=== PATIENT | female | born 1985 | race Caucasian/White ===

== ENCOUNTER 2019-08-25 18:54 | Emergency (ER) | payer BC ==
--- NOTE | 2019-08-25 20:33 | EDM.PDOC ---
ED HPI GENERAL MEDICAL PROBLEM - General Chief Complaint: Abdominal Pain Stated Complaint: abdominal pain Time Seen by Provider: 08/25/19 19:00 Source of Information: Reports: Patient History Limitations: Reports: No Limitations - History of Present Illness INITIAL COMMENTS - FREE TEXT/NARRATIVE: Patient is a 33-year-old who is noted to have abdominal pain for the past 4 days pain is located on the left lower quadrant and epigastric area Onset: Gradual Duration: Day(s):, Constant, Getting Worse Location: Reports: Abdomen, Pelvis Quality: Reports: Throbbing Severity: Moderate Improves with: Reports: None Worsens with: Reports: None abdomen Pain Score (Numeric/FACES): 8 - Related Data Allergies Allergy/AdvReac Type Severity Reaction Status Date / Time No Known Allergies Allergy Verified 08/25/19 18:59 Home Meds: Home Meds . 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 (See Below) Other EXPORT SPECIALIST History: fallopian tubes removed - Past Surgical History Musculoskeletal Surgical History: Reports: Other (See Below) Other Musculoskeletal Surgeries/Procedures:: spinal fusion to L4-L5 for herniated disc Social & Family History - Tobacco Use Smoking Status *Q: Former Smoker Years of Tobacco use: 17 Packs/Tins Daily: 1.5 Used Tobacco, but Quit: Yes Month/Year Tobacco Last Used: 2017 - Caffeine Use Caffeine Use: Reports: Coffee - Recreational Drug Use Recreational Drug Use: No ED ROS GENERAL - Review of Systems Review Of Systems: See Below Constitutional: Reports: No Symptoms HEENT: Reports: No Symptoms Respiratory: Reports: No Symptoms Cardiovascular: Reports: No Symptoms Endocrine: Reports: No Symptoms GI/Abdominal: Reports: No Symptoms : Reports: Pain Musculoskeletal: Reports: No Symptoms Skin: Reports: No Symptoms ED EXAM, RENAL/ - Physical Exam Exam: See Below Exam Limited By: No Limitations General Appearance: Alert, WD/WN, No Apparent Distress Ears: Normal External Exam, Normal Canal, Hearing Grossly Normal, Normal TMs Nose: Normal Inspection, Normal Mucosa, No Blood Throat/Mouth: Normal Inspection, Normal Lips, Normal Teeth, Normal Gums, Normal Oropharynx, Normal Voice, No Airway Compromise Head: Atraumatic, Normocephalic Neck: Normal Inspection, Supple, Non-Tender, Full Range of Motion Respiratory/Chest: No Respiratory Distress, Lungs Clear, Normal Breath Sounds, No Accessory Muscle Use, Chest Non-Tender Cardiovascular: Normal Peripheral Pulses, Regular Rate, Rhythm, No Edema, No Gallop, No JVD, No Murmur, No Rub GI/Abdominal: Normal Bowel Sounds, Soft, Non-Tender, No Organomegaly, No Distention, No Abnormal Bruit, No Mass (Female) Exam: Adnexal Tenderness (Left) Back Exam: Normal Inspection, Full Range of Motion, NT Extremities: Normal Inspection, Normal Range of Motion, Non-Tender, Normal Capillary Refill, No Pedal Edema Neurological: Alert, Oriented, CN II-XII Intact, Normal Cognition, Normal Gait, Normal Reflexes, No Motor/Sensory Deficits Psychiatric: Normal Affect, Normal Mood Skin Exam: Warm, Dry, Intact, Normal Color, No Rash Course - Vital Signs Last Recorded V/S: Last Vital Signs Temp 98.3 F 08/25/19 18:55 Pulse 80 08/25/19 18:55 Resp 16 08/25/19 18:55 BP 166/93 H 08/25/19 18:55 Pulse Ox 100 08/25/19 18:55 - Orders/Labs/Meds Labs: Laboratory Tests 08/25/19 08/25/19 Range/Units 19:29 20:00 WBC 9.8 (4.0-10.2) K/uL RBC 4.23 (3.77-5.09) M/uL Hgb 13.4 (11.7-15.5) g/dL Hct 39.2 (34.0-46.0) % MCV 92.7 (84.0-98.0) fL MCH 31.7 (28.2-33.3) pg MCHC 34.2 (31.7-36.0) g/dL RDW 11.7 (11.2-14.1) % Plt Count 316 (150-350) K/uL Neut % (Auto) 65.7 (45.0-80.0) % Lymph % (Auto) 27.4 (10.0-50.0) % Valley % (Auto) 5.5 (2.0-14.0) % Eos % (Auto) 1.1 (0.0-5.0) % Baso % (Auto) 0.3 (0.0-2.0) % Neut # (Auto) 6.42 (1.40-7.00) K/uL Lymph # (Auto) 2.68 (0.50-3.50) K/uL Valley # (Auto) 0.54 (0.00-1.00) K/uL Eos # (Auto) 0.11 (0.00-0.50) K/uL Baso # (Auto) 0.03 (0.00-0.20) K/uL Specimen Type Urinvoid Urine Color Yellow Urine Appearance Slightly cloudy Urine pH 7.0 (5.0-9.0) Ur Specific Somers 1.015 (1.005-1.030) Urine Protein Negative (NEGATIVE) mg/dL Urine Glucose (UA) Negative (NEGATIVE) mg/dL Urine Ketones Negative (NEGATIVE) mg/dL Urine Occult Blood Trace-intact H (NEGATIVE) Urine Nitrite Positive H (NEGATIVE) Urine Bilirubin Negative (NEGATIVE) Urine Urobilinogen 0.2 (0.2-1.0) E.U./dL Ur Leukocyte Esterase Small H (NEGATIVE) Urine RBC 0-5 /HPF Urine WBC 5-10 H /HPF Ur Epithelial Cells Few /LPF Urine Bacteria Many H (NONE TO FEW) /HPF Departure - Departure Time of Disposition: 20:34 Disposition: Home, Self-Care 01 Condition: Fair Clinical Impression: UTI (urinary tract infection), Pain of ovary - Discharge Information *PRESCRIPTION DRUG MONITORING PROGRAM REVIEWED*: No *COPY OF PRESCRIPTION DRUG MONITORING REPORT IN PATIENT CHARLES: No Referrals: PCP,None [Primary Care Provider] - Care Plan Goals: Patient will be sent home on Pyridium and Septra DS we'll schedule her for ultrasound in the morning to see how her ovaries are follow-up with primary if 2 -3 days
== END 2019-08-25 20:50 | disposition home or self-care (01) ==
LOC: LL.ED 18:54 → SUPCPDRO 18:54 → LL.ED 20:50
DX: N39.0 Urinary tract infection, site not specified (principal); N94.89 Other specified conditions associated with female genital organs and menstrual cycle; Z87.891 Personal history of nicotine dependence
CPT/HCPCS: 36415; 81001; 85025; 87086; 87088; 87186; 99284

== ENCOUNTER 2019-12-20 18:14 | Emergency (ER) | payer BC ==
[2019-12-20] MEDS ORDERED: Magnesium Oxide 400 MG Tab PO ONE (19:28)
--- NOTE | 2019-12-20 19:28 | EDM.PDOC ---
ED HPI GENERAL MEDICAL PROBLEM - General Chief Complaint: General Stated Complaint: hypertension Time Seen by Provider: 12/20/19 18:54 Source of Information: Reports: Patient History Limitations: Reports: No Limitations - History of Present Illness INITIAL COMMENTS - FREE TEXT/NARRATIVE: Patient referred to ER by [facility] after patient called line to ask about persistently high blood pressures. Recently discharged from stay at [facility]. Is taking Effexor and Gabapentin. [facility] also started her on Clonidine 0.1mg Q4 PRN elevated BP. Patient has been following her blood pressures at home and they have been climbing yesterday and today gradually. Admits to feeling anxiety "all the time" and has been getting increasingly anxious about the blood pressure readings. Did have relatively normal BPs several days ago. Now getting readings around 140s/100. Denies headache/visual changes/neuro changes. Feels tight central chest but that happens with the anxiety. No recent illnesses/fevers/chills/trauma. Denies suicidal/homicidal thoughts. No new musculoskeletal pain. Denies SOB/ cough/wheeze/palpitations. Denies nausea/emesis/bowel changes or UTI complaints. Eating and drinking well. 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: fallopian tubes removed Psychiatric History: Reports: Anxiety, Depression, Psych Hospitalization(s) Endocrine/Metabolic History: Reports: Obesity/BMI 30+ - Past Surgical History Musculoskeletal Surgical History: Reports: Other (See Below) Other Musculoskeletal Surgeries/Procedures:: spinal fusion to L4-L5 for herniated disc Social & Family History - Tobacco Use Smoking Status *Q: Former Smoker Used Tobacco, but Quit: Yes Month/Year Tobacco Last Used: spring 2017 - Caffeine Use Caffeine Use: Reports: Coffee - Alcohol Use Alcohol Use History: Yes Alcohol Use Frequency: Socially - Recreational Drug Use Recreational Drug Use: No Drug Use in Last 12 Months: No ED ROS GENERAL - Review of Systems Review Of Systems: Comprehensive ROS is negative, except as noted in HPI. ED EXAM, GENERAL - Physical Exam Exam: See Below Exam Limited By: No Limitations General Appearance: Alert, Anxious, Obese Eye Exam: Bilateral Eye: EOMI, PERRL Ears: Hearing Grossly Normal Nose: No: Nasal Deformity, Nasal Swelling, Nasal Drainage Throat/Mouth: Normal Lips, Normal Voice, No Airway Compromise Head: Atraumatic, Normocephalic Neck: Supple, Full Range of Motion Respiratory/Chest: No Respiratory Distress, Lungs Clear, Normal Breath Sounds, No Accessory Muscle Use, Chest Non-Tender Cardiovascular: Regular Rate, Rhythm (rate 100), No Murmur GI/Abdominal: Soft, Non-Tender (Female) Exam: Deferred Rectal (Female) Exam: Deferred Back Exam: No: Muscle Spasm Extremities: Normal Range of Motion, Normal Capillary Refill Neurological: Alert, Oriented, CN II-XII Intact, Normal Cognition, Normal Gait, No Motor/Sensory Deficits Psychiatric: Anxious Skin Exam: Warm, Dry, Intact, Normal Color Course - Vital Signs Last Recorded V/S: Last Vital Signs Temp 36.1 C 12/20/19 18:18 Pulse 97 12/20/19 19:20 Resp 16 12/20/19 18:18 BP 137/94 H 12/20/19 19:20 Pulse Ox 99 12/20/19 18:56 - Orders/Labs/Meds Meds: Medications Discontinued Medications Generic Name Dose Route Start Last Admin Trade Name Rosales PRN Reason Stop Dose Admin Magnesium Oxide 800 mg 12/20/19 19:28 12/20/19 19:34 Magnesium Oxide PO 12/20/19 19:29 800 mg ONETIME ONE Administration - Re-Assessments/Exams Free Text/Narrative Re-Assessment/Exam: Patient's bps reviewed with her. She has been trying to do daily yoga and mediation for her anxiety since coming home. Also trying box breathing. Admits that the BP issue is stressing her out more as time goes on. She has not had any obvious BP related complaints/changes and even though BPs have been elevated they are not at all in an extreme range. Patient reassured. Long visit with her reviewing strategies for targeting and reducing anxiety. Her effort to do the yoga and meditation was applauded and encouraged. Dietary changes to a whole food diet recommended. She is to avoid processed food, sugar , baked goods. Also recommended to start Vit d and Mg. She can get her levels checked this week when she follows up with her primary provider. Patient became visibly much more relaxed as time went on and stated that she felt encouraged. Will have her try to schedule the clonidine and take 0.2mg BID for the next few days until she follows up at her clinic. Precautions reviewed, including symptoms suggestive of excessively high BP. She is to return to the ER if significantly elevated readings are noted, particularly if any vision or neuro changes/PERDUE develop. Patient agreeable with plan. She is to take two tabs clonidine 0.1mg once she gets home. Departure - Departure Time of Disposition: 19:54 Disposition: Home, Self-Care 01 Condition: Good Clinical Impression: Anxiety and depression Hypertension Qualifiers: Hypertension type: essential hypertension Qualified Code(s): I10 - Essential ( primary) hypertension - Discharge Information *PRESCRIPTION DRUG MONITORING PROGRAM REVIEWED*: Not Applicable *COPY OF PRESCRIPTION DRUG MONITORING REPORT IN PATIENT CHARLES: Not Applicable Referrals: Tonja Gibson PA-C [Primary Care Provider] - Forms: ED Department Discharge Additional Instructions: Take two 0.1mg doses of Clonidine every 12 hours scheduled. No "as needed" doses and continue to check your blood pressure and record it 3 times a day. Follow up with your primary provider as scheduled on Saturday. Continue to perform your yoga/meditation/box breathing DAILY. Dietary changes as discussed. Ask your provider to check your Magnesium level when you have your appointment with her Saturday. If you have sudden worsening problems/higher BPs with vision changes or headache or neuro changes then follow up with ER. Sepsis Event Note - Evaluation Sepsis Screening Result: No Definite Risk - Focused Exam Vital Signs: Vital Signs Temp Pulse Resp BP Pulse Ox 12/20/19 19:20 97 137/94 H 12/20/19 18:45 89 153/91 H 99 12/20/19 18:29 95 143/98 H 99 12/20/19 18:18 36.1 C 100 16 143/98 H 100 Date Exam was Performed: 12/20/19 Time Exam was Performed: 19:36
== END 2019-12-20 19:39 | disposition home or self-care (01) ==
LOC: LL.ED 18:14
DX: I10 Essential (primary) hypertension (principal); F41.9 Anxiety disorder, unspecified; F32.9 Major depressive disorder, single episode, unspecified; E66.9 Obesity, unspecified; Z87.891 Personal history of nicotine dependence
CPT/HCPCS: 99283; A9270

== ENCOUNTER 2020-03-11 02:05 | Inpatient (IN) | payer BC ==
[2020-03-11] MEDS ORDERED: Sodium Chloride 0.9% 10 ML Syringe FLUSH PRN (02:13)
[2020-03-11 02:33] LABS: CHLORIDE,CL 100 mmol/L (98-107); SODIUM,NA 139 mmol/L (136-145)
--- NOTE | 2020-03-11 02:34 | EDM.PDOC ---
ED HPI GENERAL MEDICAL PROBLEM - General Chief Complaint: General Stated Complaint: found on floor of bathroom, sweaty, heart racing Time Seen by Provider: 03/11/20 02:12 Source of Information: Reports: Patient History Limitations: Reports: No Limitations - History of Present Illness INITIAL COMMENTS - FREE TEXT/NARRATIVE: Patient woken up by one of her children. Reports feeling heart beating fast/ felt sweaty and the need to use toilet. Had what she described as a very large diarrhea bowel movement. Since then she has had on/off crampy abdominal pain across entire abdomen. Was nauseated after having the BM but that currently has improved. Reports three day headache. Recently had HCTZ dose double and started on Prazosin. She has been on Prazosin before and had the side effect of dyspnea, thus it was discontinued. She said they restarted it again because "the benefits outweighed the negative" . Denies HEENT changes other than PERDUE. No URI complaints. Denies SOB/cough/phlegm/chest pain. No further sensation of fast heart beat/palpitations/edema/syncope. GI:+ for nausea/diarrhea/abdominal cramping as noted above. negative for UTI/hematuria. No flank pain. Has history of chronic back/neck pain. 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: fallopian tubes removed Psychiatric History: Reports: Anxiety, Depression, Psych Hospitalization(s) Endocrine/Metabolic History: Reports: Obesity/BMI 30+ - Past Surgical History Musculoskeletal Surgical History: Reports: Other (See Below) Other Musculoskeletal Surgeries/Procedures:: spinal fusion to L4-L5 for herniated disc Social & Family History - Tobacco Use Smoking Status *Q: Never Smoker Second Hand Smoke Exposure: No - Caffeine Use Caffeine Use: Reports: Coffee - Alcohol Use Alcohol Use History: No - Recreational Drug Use Recreational Drug Use: No ED ROS GENERAL - Review of Systems Review Of Systems: Comprehensive ROS is negative, except as noted in HPI. ED EXAM, GENERAL - Physical Exam Exam: See Below Exam Limited By: No Limitations General Appearance: Alert, Anxious, Obese Eye Exam: Bilateral Eye: EOMI, PERRL Ears: Normal External Exam, Hearing Grossly Normal Nose: No: Nasal Deformity, Nasal Swelling, Nasal Drainage Throat/Mouth: Normal Lips, Normal Voice, No Airway Compromise Head: Atraumatic, Normocephalic Neck: Normal Inspection, Supple, Non-Tender, Full Range of Motion Respiratory/Chest: No Respiratory Distress, Lungs Clear, Normal Breath Sounds, No Accessory Muscle Use, Chest Non-Tender Cardiovascular: Regular Rate, Rhythm, No Murmur GI/Abdominal: Soft, No Distention, Tender (mild discomfort left mid abdomen with palpation), Other (active bowel sounds throughout). No: Guarding, Rigid, Rebound (Female) Exam: Deferred Rectal (Female) Exam: Deferred Back Exam: No: CVA Tenderness (L), CVA Tenderness (R), Muscle Spasm, Paraspinal Tenderness, Vertebral Tenderness Extremities: Normal Inspection, Non-Tender, Normal Capillary Refill Neurological: Alert, Oriented, Normal Cognition, Other (equal tone/strength bilaterally) Psychiatric: Anxious Skin Exam: Warm, Dry, Intact, Normal Color Course - Vital Signs Last Recorded V/S: Last Vital Signs Temp 36.4 C 03/11/20 02:08 Pulse 87 03/11/20 02:08 Resp 21 H 03/11/20 02:08 BP 129/74 03/11/20 02:08 Pulse Ox 100 03/11/20 02:08 - Orders/Labs/Meds Orders: Active Orders 24 hr Category Date Time Status Abdomen 2V AP Flat Upright [CR] Stat Exams 03/11/20 02:13 Ordered CBC WITH AUTO DIFF [HEME] Stat Lab 03/11/20 02:13 Ordered COMPREHENSIVE METABOLIC PN,CMP [CHEM] Stat Lab 03/11/20 02:13 Ordered CORONAVIRUS COVID-19 PCR PHL Routine Lab 03/11/20 02:20 Ordered LACTIC ACID [CHEM] Stat Lab 03/11/20 02:13 Ordered MG [MAGNESIUM] [CHEM] Stat Lab 03/11/20 02:13 Ordered UA W/MICROSCOPIC [URIN] Stat Lab 03/11/20 02:13 Ordered Sodium Chloride 0.9% [Saline Flush] Med 03/11/20 02:13 Ordered 10 ml FLUSH ASDIRECTED PRN Saline Lock Insert [OM.PC] Routine Oth 03/11/20 02:13 Ordered Medication Orders Sodium Chloride (Saline Flush) 10 ml FLUSH ASDIRECTED PRN PRN Reason: Keep Vein Open Meds: Medications Generic Name Dose Route Start Last Admin Trade Name Freq PRN Reason Stop Dose Admin Sodium Chloride 10 ml 03/11/20 02:13 Saline Flush FLUSH ASDIRECTED PRN Keep Vein Open - Radiology Interpretation Free Text/Narrative:: Abdominal films show no evidence of acute obstruction - Re-Assessments/Exams Free Text/Narrative Re-Assessment/Exam: 03/11/20 02:36 Baseline labs and xray requested. Patient has had tubal ligation/denies chance . Covid testing added given her three day history of headache/heavy sensation in neck along with the GI symptoms. 03/11/20 02:40 WBC mildly elevated. Elevated lactic acid. Mag and K low. Suspect viral GI illness. Admit observation for IV fluids/K and Mag replacement. Departure - Departure Time of Disposition: 02:41 Disposition: Refer to Observation Condition: Good Clinical Impression: Elevated lactic acid level, Hypomagnesemia, Hypokalemia Diarrhea Qualifiers: Diarrhea type: presumed infectious Qualified Code(s): R19.7 - Diarrhea, unspecified - Discharge Information *PRESCRIPTION DRUG MONITORING PROGRAM REVIEWED*: Not Applicable *COPY OF PRESCRIPTION DRUG MONITORING REPORT IN PATIENT CHARLES: Not Applicable Sepsis Event Note - Evaluation Sepsis Screening Result: No Definite Risk - Focused Exam Vital Signs: Vital Signs Temp Pulse Resp BP Pulse Ox 03/11/20 02:08 36.4 C 87 21 H 129/74 100 Date Exam was Performed: 03/11/20 Time Exam was Performed: 02:28 - Problem List & Annotations (1) Diarrhea SNOMED Code(s): 38923441 Code(s): R19.7 - DIARRHEA, UNSPECIFIED Status: Acute Priority: High Current Visit: Yes Onset Date: ~03/11/20 Annotation/Comment:: Single very large loose stool followed by abdominal cramping. Suspect viral etiology. Observe for changes. Qualifiers: Diarrhea type: presumed infectious Qualified Code(s): R19.7 - Diarrhea, unspecified (2) Elevated lactic acid level SNOMED Code(s): 3443943 Code(s): R79.89 - OTHER SPECIFIED ABNORMAL FINDINGS OF BLOOD CHEMISTRY Status: Acute Priority: Medium Current Visit: Yes Annotation/Comment:: Observe trend. No evidence of sepsis at this time. Repeat in 12 hours. (3) Hypokalemia SNOMED Code(s): 27862595 Code(s): E87.6 - HYPOKALEMIA Status: Acute Priority: Medium Current Visit: Yes Annotation/Comment:: Initiate potassium replacement and recheck in 12 hours. (4) Hypomagnesemia SNOMED Code(s): 125112806 Code(s): E83.42 - HYPOMAGNESEMIA Status: Chronic Priority: Medium Current Visit: Yes Annotation/Comment:: Initiate Mag replacement. Patient should be started on oral supplementation at time of discharge. (5) Hypertension SNOMED Code(s): 80521832 Code(s): I10 - ESSENTIAL (PRIMARY) HYPERTENSION Status: Chronic Priority : Low Current Visit: No Annotation/Comment:: Observe trends. Recently had HCTZ increased and Prazosin initiated. Qualifiers: Hypertension type: essential hypertension (6) Polycystic ovarian disease SNOMED Code(s): 283515049 Code(s): E28.2 - POLYCYSTIC OVARIAN SYNDROME Status: Chronic Priority: Low Current Visit: No Annotation/Comment:: stable per history (7) Anxiety and depression SNOMED Code(s): 930690753 Code(s): F41.9 - ANXIETY DISORDER, UNSPECIFIED; F32.9 - MAJOR DEPRESSIVE DISORDER, SINGLE EPISODE, UNSPECIFIED Status: Chronic Priority: Low Current Visit: No Annotation/Comment:: stable per history - My Orders Last 24 Hours: My Active Orders 03/11/20 02:13 Abdomen 2V AP Flat Upright [CR] Stat CBC WITH AUTO DIFF [HEME] Stat COMPREHENSIVE METABOLIC PN,CMP [CHEM] Stat LACTIC ACID [CHEM] Stat MG [MAGNESIUM] [CHEM] Stat UA W/MICROSCOPIC [URIN] Stat Sodium Chloride 0.9% [Saline Flush] 10 ml FLUSH ASDIRECTED PRN Saline Lock Insert [OM.PC] Routine 03/11/20 02:20 CORONAVIRUS COVID-19 PCR [facility] Routine - Assessment/Plan Admission H&P: Please use this note as an admission H&P Last 24 Hours: My Active Orders 03/11/20 02:13 Abdomen 2V AP Flat Upright [CR] Stat CBC WITH AUTO DIFF [HEME] Stat COMPREHENSIVE METABOLIC PN,CMP [CHEM] Stat LACTIC ACID [CHEM] Stat MG [MAGNESIUM] [CHEM] Stat UA W/MICROSCOPIC [URIN] Stat Sodium Chloride 0.9% [Saline Flush] 10 ml FLUSH ASDIRECTED PRN Saline Lock Insert [OM.PC] Routine 03/11/20 02:20 CORONAVIRUS COVID-19 PCR [facility] Routine Assessment:: as above. Stable and suitable for observation. Plan: As above. Anticipate 1-2 day stay depending on how well she responds to Mag/K replacement and clinical course of abdominal pain/symptoms. to assume care later this morning.
[2020-03-11] MEDS ORDERED: Ondansetron 4 MG/2 ML SDV IVPUSH PRN (03:03)
[2020-03-11] MEDS ORDERED: Ondansetron 4 MG/2 ML SDV IVPUSH ONE (03:08)
[2020-03-11] MEDS ORDERED: Potassium Chloride 20 MEQ Tab.ER PO ONE ×4 (03:09→12:00)
[2020-03-11] MEDS ORDERED: Sodium Chloride 0.9% 1,000 ML IV ONE (03:10)
[2020-03-11] MEDS ORDERED: Ketorolac 30 MG/ML SDV IVPUSH PRN ×2 (03:14→16:00)
[2020-03-11] MEDS: Acetaminophen 500 MG Tab PO PRN ×2 (03:44→12:50)
[2020-03-11] MEDS: Sodium Chloride 0.9% 1,000 ML IV SCH ×4 (05:52→21:54)
[2020-03-11 15:20] LABS: CHLORIDE,CL 108 mmol/L (98-107); SODIUM,NA 141 mmol/L (136-145)
[2020-03-11] MEDS ORDERED: Temazepam 15 MG Cap PO PRN (15:34)
[2020-03-11] MEDS ORDERED: Venlafaxine 37.5 MG Cap.ER PO ONE (15:58)
[2020-03-11] MEDS ORDERED: Venlafaxine 75 MG Cap.ER PO ONE (16:15)
[2020-03-11] MEDS: Nitrofurantoin Monohydrate/Macrocrystalline 100 MG Cap PO SCH (17:07)
[2020-03-11] MEDS: Gabapentin 100 MG Cap PO SCH (20:28)
[2020-03-12] MEDS ORDERED: VENLAFAXINE HCL PO SCH (08:00)
[2020-03-12] MEDS ORDERED: Venlafaxine 37.5 MG Cap.ER PO SCH (08:00)
[2020-03-12] MEDS ORDERED: Gabapentin 100 MG Cap PO SCH (08:00)
[2020-03-12] MEDS: Nitrofurantoin Monohydrate/Macrocrystalline 100 MG Cap PO SCH ×2 (08:16→17:30)
[2020-03-12 08:32] LABS: CHLORIDE,CL 109 mmol/L (98-107); SODIUM,NA 142 mmol/L (136-145)
[2020-03-12] MEDS ORDERED: Iopamidol 755 Mg/ML 100 ML Bottle IVPUSH ONE (09:06)
[2020-03-12] MEDS ORDERED: Enoxaparin 80 MG/0.8 ML Syringe SUBCUT SCH (09:15)
--- NOTE | 2020-03-12 09:15 | PCM.PN ---
- General Info Date of Service: 03/12/20 Admission Dx/Problem (Free Text): Syncope Functional Status: Reports: Pain Controlled, Tolerating Diet, Ambulating, Urinating. Denies: New Symptoms, Incentive Spirometry Pain Score: 0 - Review of Systems General: Reports: No Symptoms. Denies: Fever, Weakness, Fatigue, Malaise, Appetite (Good) HEENT: Reports: No Symptoms. Denies: Ear Pain, Eye Pain, Glasses, Headaches, Post Nasal Drip, Sinus Congestion, Sore Throat, Rhinitis, Visual Changes Pulmonary: Reports: No Symptoms. Denies: Shortness of Breath, Pleuritic Chest Pain, Cough, Sputum, Hemoptysis, Wheezing Cardiovascular: Reports: No Symptoms. Denies: Chest Pain, Palpitations, Dyspnea on Exertion, Orthopnea, PND, Edema Gastrointestinal: Reports: Constipation. Denies: Abdominal Pain, Decreased Appetite, Diarrhea, Difficulty Swallowing, Flatus, Hematochezia, Melena, Nausea , Vomiting Genitourinary: Reports: No Symptoms. Denies: Dysuria, Frequency, Burning, Pain , Urgency, Incontinence, Hematuria, Retention, Flank Pain Musculoskeletal: Reports: No Symptoms. Denies: Neck Pain, Shoulder Pain, Arm Pain, Back Pain, Leg Pain Skin: Reports: No Symptoms. Denies: Diaphoresis Neurological: Reports: No Symptoms. Denies: Confusion, Numbness, Paresthesia, Tingling, Weakness Psychiatric: Reports: No Symptoms. Denies: Confusion, Depression, Anxiety, Agitation, Cravings, Hallucinations - Patient Data Vitals - Most Recent: Last Vital Signs Temp 36.6 C 03/12/20 08:01 Pulse 81 03/12/20 08:01 Resp 20 03/12/20 08:01 BP 146/92 H 03/12/20 08:01 Pulse Ox 95 03/12/20 08:01 Vital Signs - 24 hr 03/11/20 03/11/20 03/11/20 11:40 17:57 21:54 Temperature [ 36.7 C Oral] Temperature [ 36.4 C 36.7 C Temporal] Pulse, 84 76 74 Peripheral [ Pulse Oximetry] Respiratory 20 20 16 Rate Blood Pressure 139/87 145/97 H 152/100 H [Left Upper Arm ] O2 Sat by Pulse 94 L 95 97 Oximetry 03/12/20 03/12/20 00:00 08:01 Temperature [ 36.6 C Oral] Temperature [ Temporal] Pulse, 81 Peripheral [ Pulse Oximetry] Respiratory 20 Rate Blood Pressure 145/99 H 146/92 H [Left Upper Arm ] O2 Sat by Pulse 95 Oximetry Weight - Most Recent: 96.162 kg I&O - Last 24 Hours: Intake & Output 03/11/20 03/12/20 03/12/20 22:59 06:59 14:59 Intake Total 2882 1238 360 Output Total 500 300 Balance 2882 738 60 Imaging Impressions - Last 24 Hours: dermatology procedural physician shows normal sinus rhythm with heart rate in the 80s with no ectopy or arrhythmia Chest x-ray, PA and lateral, on 03/12/20 shows no evidence of cardiomegaly, pulmonary infiltrates, pneumothorax, or CHF. Possible mild pulmonary obstructive disease Lab Results Last 24 Hours: Laboratory Results - last 24 hr 03/11/20 03/11/20 03/11/20 Range/Units 14:55 14:55 14:55 WBC 7.6 (4.0-10.2) K/uL RBC 3.60 L (3.77-5.09) M/uL Hgb 11.3 L D (11.7-15.5) g/dL Hct 33.7 L (34.0-46.0) % MCV 93.6 D (84.0-98.0) fL MCH 31.4 (28.2-33.3) pg MCHC 33.5 (31.7-36.0) g/dL RDW 13.4 (11.2-14.1) % Plt Count 293 (150-350) K/uL Neut % (Auto) 62.6 (45.0-80.0) % Lymph % (Auto) 27.5 (10.0-50.0) % Tripp % (Auto) 8.3 (2.0-14.0) % Eos % (Auto) 1.2 (0.0-5.0) % Baso % (Auto) 0.4 (0.0-2.0) % Neut # (Auto) 4.77 (1.40-7.00) K/uL Lymph # (Auto) 2.09 (0.50-3.50) K/uL Tripp # (Auto) 0.63 (0.00-1.00) K/uL Eos # (Auto) 0.09 (0.00-0.50) K/uL Baso # (Auto) 0.03 (0.00-0.20) K/uL D-Dimer, Quantitative (0-400) ng/mL Sodium 141 (136-145) mmol/L Potassium 3.7 (3.5-5.1) mmol/L Chloride 108 H (98-107) mmol/L Carbon Dioxide 24.2 (21.0-32.0) mmol/L BUN 13 (7-18) mg/dL Creatinine 0.71 (0.51-1.17) mg/dL Est Cr Clr Drug Dosing 85.84 mL/min Estimated GFR (MDRD) > 60 mL/min Glucose 104 (74-106) mg/dL Lactic Acid 0.9 (0.4-2.0) mmol/L Calcium 7.7 L (8.5-10.1) mg/dL Magnesium (1.8-2.4) mg/dL Total Bilirubin (0.2-1.0) mg/dL AST (15-37) U/L ALT (12-78) U/L Alkaline Phosphatase (46-116) IU/L Creatine Kinase (26-308) U/L Creatine Kinase Index (0.0-2.5) % CK-MB (CK-2) (0.00-3.60) ng/mL Troponin I (0.000-0.056) ng/mL NT-Pro-B Natriuret Pep (0-125) pg/mL Total Protein (6.4-8.2) g/dL Albumin (3.4-5.0) g/dL Vitamin B12 (193-986) pg/mL TSH, Ultra Sensitive (0.358-3.740) mIU/mL 03/12/20 03/12/20 03/12/20 Range/Units 07:35 07:35 07:35 WBC 6.7 (4.0-10.2) K/uL RBC 3.84 (3.77-5.09) M/uL Hgb 11.9 (11.7-15.5) g/dL Hct 36.3 (34.0-46.0) % MCV 94.5 (84.0-98.0) fL MCH 31.0 (28.2-33.3) pg MCHC 32.8 (31.7-36.0) g/dL RDW 13.1 (11.2-14.1) % Plt Count 275 (150-350) K/uL Neut % (Auto) 55.6 (45.0-80.0) % Lymph % (Auto) 33.9 (10.0-50.0) % Tripp % (Auto) 8.6 (2.0-14.0) % Eos % (Auto) 1.6 (0.0-5.0) % Baso % (Auto) 0.3 (0.0-2.0) % Neut # (Auto) 3.73 (1.40-7.00) K/uL Lymph # (Auto) 2.28 (0.50-3.50) K/uL Tripp # (Auto) 0.58 (0.00-1.00) K/uL Eos # (Auto) 0.11 (0.00-0.50) K/uL Baso # (Auto) 0.02 (0.00-0.20) K/uL D-Dimer, Quantitative 686 H (0-400) ng/mL Sodium 142 (136-145) mmol/L Potassium 3.8 (3.5-5.1) mmol/L Chloride 109 H (98-107) mmol/L Carbon Dioxide 25.5 (21.0-32.0) mmol/L BUN 8 (7-18) mg/dL Creatinine 0.66 (0.51-1.17) mg/dL Est Cr Clr Drug Dosing 92.34 mL/min Estimated GFR (MDRD) > 60 mL/min Glucose 91 (74-106) mg/dL Lactic Acid (0.4-2.0) mmol/L Calcium 7.3 L (8.5-10.1) mg/dL Magnesium 2.0 (1.8-2.4) mg/dL Total Bilirubin 0.3 (0.2-1.0) mg/dL AST 24 (15-37) U/L ALT 24 (12-78) U/L Alkaline Phosphatase 59 (46-116) IU/L Creatine Kinase 493 H (26-308) U/L Creatine Kinase Index 0.3 (0.0-2.5) % CK-MB (CK-2) 1.50 (0.00-3.60) ng/mL Troponin I 0.010 (0.000-0.056) ng/mL NT-Pro-B Natriuret Pep 258 H (0-125) pg/mL Total Protein 6.2 L (6.4-8.2) g/dL Albumin 2.9 L (3.4-5.0) g/dL Vitamin B12 297 (193-986) pg/mL TSH, Ultra Sensitive 1.187 (0.358-3.740) mIU/mL 03/12/20 Range/Units 07:35 WBC (4.0-10.2) K/uL RBC (3.77-5.09) M/uL Hgb (11.7-15.5) g/dL Hct (34.0-46.0) % MCV (84.0-98.0) fL MCH (28.2-33.3) pg MCHC (31.7-36.0) g/dL RDW (11.2-14.1) % Plt Count (150-350) K/uL Neut % (Auto) (45.0-80.0) % Lymph % (Auto) (10.0-50.0) % Tripp % (Auto) (2.0-14.0) % Eos % (Auto) (0.0-5.0) % Baso % (Auto) (0.0-2.0) % Neut # (Auto) (1.40-7.00) K/uL Lymph # (Auto) (0.50-3.50) K/uL Tripp # (Auto) (0.00-1.00) K/uL Eos # (Auto) (0.00-0.50) K/uL Baso # (Auto) (0.00-0.20) K/uL D-Dimer, Quantitative (0-400) ng/mL Sodium (136-145) mmol/L Potassium (3.5-5.1) mmol/L Chloride (98-107) mmol/L Carbon Dioxide (21.0-32.0) mmol/L BUN (7-18) mg/dL Creatinine (0.51-1.17) mg/dL Est Cr Clr Drug Dosing mL/min Estimated GFR (MDRD) mL/min Glucose (74-106) mg/dL Lactic Acid 0.7 (0.4-2.0) mmol/L Calcium (8.5-10.1) mg/dL Magnesium (1.8-2.4) mg/dL Total Bilirubin (0.2-1.0) mg/dL AST (15-37) U/L ALT (12-78) U/L Alkaline Phosphatase (46-116) IU/L Creatine Kinase (26-308) U/L Creatine Kinase Index (0.0-2.5) % CK-MB (CK-2) (0.00-3.60) ng/mL Troponin I (0.000-0.056) ng/mL NT-Pro-B Natriuret Pep (0-125) pg/mL Total Protein (6.4-8.2) g/dL Albumin (3.4-5.0) g/dL Vitamin B12 (193-986) pg/mL TSH, Ultra Sensitive (0.358-3.740) mIU/mL Med Orders - Current: Current Medications Acetaminophen (Tylenol Extra Strength) 1,000 mg PO Q6H PRN PRN Reason: Pain Last Admin: 03/11/20 12:50 Dose: 1,000 mg Enoxaparin Sodium (Lovenox) 80 mg SUBCUT Q12H [facility] Gabapentin (Neurontin) 100 mg PO DAILY@14,20 [facility] Last Admin: 03/11/20 20:28 Dose: 100 mg Sodium Chloride (Normal Saline) 1,000 mls @ 80 mls/hr IV ASDIRECTED [facility] Last Admin: 03/11/20 21:54 Dose: 80 mls/hr Iopamidol (Isovue-370 (76%)) 100 ml IVPUSH ONETIME ONE Stop: 03/12/20 09:07 Metoprolol Succinate (Toprol Xl) 25 mg PO DAILY [facility] Nitrofurantoin Macrocrystals (Macrobid) 100 mg PO BID [facility] Last Admin: 03/12/20 08:16 Dose: 100 mg Ondansetron HCl (Zofran) 4 mg IVPUSH Q6H PRN PRN Reason: Nausea/Vomiting Sodium Chloride (Saline Flush) 10 ml FLUSH ASDIRECTED PRN PRN Reason: Keep Vein Open Temazepam (Restoril) 15 mg PO BEDTIME PRN PRN Reason: Insomnia Discontinued Medications Magnesium Sulfate/Dextrose 1 (gm/ Premix) 100 mls @ 100 mls/hr IV ONETIME ONE Stop: 03/11/20 04:05 Last Admin: 03/11/20 03:44 Dose: 100 mls/hr Sodium Chloride (Normal Saline) 1,000 mls @ 500 mls/hr IV .BOLUS ONE Stop: 03/11/20 05:09 Last Admin: 03/11/20 03:44 Dose: 500 mls/hr Magnesium Sulfate/Dextrose 1 (gm/ Premix) 100 mls @ 100 mls/hr IV ONETIME ONE Stop: 03/11/20 09:59 Last Admin: 03/11/20 08:50 Dose: 100 mls/hr Sodium Chloride (Normal Saline) 1,000 mls @ 150 mls/hr IV ASDIRECTED [facility] Last Admin: 03/11/20 12:37 Dose: 150 mls/hr Ketorolac Tromethamine (Toradol) 30 mg IVPUSH Q6H PRN PRN Reason: Pain Stop: 03/16/20 03:14 Last Admin: 03/11/20 03:45 Dose: 30 mg Ketorolac Tromethamine (Toradol) 15 mg IVPUSH Q6H PRN PRN Reason: Pain (severe 7-10) Stop: 03/16/20 16:01 Ondansetron HCl (Zofran) 4 mg IVPUSH ONETIME ONE Stop: 03/11/20 03:09 Last Admin: 03/11/20 03:45 Dose: 4 mg Potassium Chloride (Klor-Con M20) 20 meq PO ONETIME ONE Stop: 03/11/20 03:10 Last Admin: 03/11/20 03:46 Dose: 20 meq Potassium Chloride (Klor-Con M20) 20 meq PO ONETIME ONE Stop: 03/11/20 06:01 Last Admin: 03/11/20 05:55 Dose: 20 meq Potassium Chloride (Klor-Con M20) 20 meq PO ONETIME ONE Stop: 03/11/20 09:01 Last Admin: 03/11/20 08:50 Dose: 20 meq Potassium Chloride (Klor-Con M20) 20 meq PO ONETIME ONE Stop: 03/11/20 12:01 Last Admin: 03/11/20 11:42 Dose: 20 meq Venlafaxine HCl (Effexor Xr) 37.5 mg PO ONETIME ONE Stop: 03/11/20 15:59 Last Admin: 03/11/20 16:30 Dose: 37.5 mg Venlafaxine HCl (Effexor Xr) 150 mg PO ONETIME ONE Stop: 03/11/20 16:16 Last Admin: 03/11/20 16:30 Dose: 150 mg - Exam Quality Assessment: DVT Prophylaxis. No: Supplemental Oxygen, Central Line/PICC , Urine Catheter, Skin Breakdown, Restraints General: Alert, Oriented, Cooperative, No Acute Distress HEENT: Pupils Equal, Pupils Reactive, EOMI, Mucous Membr. Moist/Point [place]. No: Scleral Icterus Neck: Supple, Trachea Midline, No JVD, No Thyromegaly. No: Lymphadenopathy Lungs: Clear to Auscultation, Normal Respiratory Effort. No: Rub Cardiovascular: Regular Rate, Regular Rhythm, No Murmurs. No: Gallops, Rubs GI/Abdominal Exam: Normal Bowel Sounds, Soft, Non-Tender, No Organomegaly, No Distention, No Abnormal Bruit, No Mass, Other (Obese). No: Guarding (Female) Exam: Deferred Back Exam: Normal Inspection, Full Range of Motion. No: CVA Tenderness (L), CVA Tenderness (R), Muscle Spasm Extremities: Normal Inspection, Normal Range of Motion, Non-Tender, No Pedal Edema, Normal Capillary Refill. No: Vanesa's Sign Peripheral Pulses: 2+: Radial (L), Radial (R), Dorsalis Pedis (L), Dorsalis Pedis (R) Skin: Warm, Dry, Intact. No: Ecchymosis Neurological: No New Focal Deficit Psy/Mental Status: Alert, Normal Affect, Normal Mood. No: Agitated, Suicidal Ideation, Hallucinations EKG INTERPRETATION EKG Date: 03/12/20 Time: 08:28 Rhythm: NSR Rate (Beats/Min): 80 [place]: Normal (Versus neutral) P-Wave: Present (Mild Diffuse biphasic P waves with extreme poor R-wave progression in the anterior leads) QRS: Normal (0.07 seconds with mild repolarization changes) ST-T: Other (T-wave inversion in leads 3, V1, V3, and V4 with lead placement verified) QT: Normal AL/PQ Interval: 0.16 seconds Comparison: NA - No Prior EKG EKG Interpretation Comments: Possible anterior wall cardiac ischemia Sepsis Event Note - Evaluation Sepsis Screening Result: No Definite Risk - Focused Exam Vital Signs: Vital Signs Temp Temp Pulse Resp BP Pulse Ox 03/12/20 08:01 36.6 C 81 20 146/92 H 95 03/12/20 00:00 145/99 H 03/11/20 21:54 36.7 C 74 16 152/100 H 97 Date Exam was Performed: 03/12/20 Time Exam was Performed: 09:33 - Problem List & Annotations (1) Syncope SNOMED Code(s): 911282282 Code(s): R55 - SYNCOPE AND COLLAPSE Status: Acute Priority: High Current Visit: Yes Onset Date: 03/12/20 Qualifiers: Syncope type: unspecified Qualified Code(s): R55 - Syncope and collapse Annotation/Comment:: Syncopal episode initially suspected secondary to patient' s diarrhea and possible vasovagal episode., Note, however, d-dimer elevation today with further workup as below. No chest pain or anginal type symptoms despite evidence of some anterior wall cardiac ischemia by today's exam. Mild change in troponin I, which is still normal with additional normal cardiac index. Subcutaneous Lovenox as below. She is not symptomatic at this time. Note that patient's prazosin and hydrochlorothiazide could also be contributing factors. These medications were not reinitiated on admission. Initiate low-dose Toprol XL for now secondary to mildly elevated blood pressures. Orthostatic blood pressures prior to discharge. Diarrhea has since resolved with patient now having some constipation. Repeat EKG and cardiac enzymes in the a.m. with consideration of outpatient Cardiolite stress test depending on her clinical course. (2) D-dimer, elevated SNOMED Code(s): 590002462 Code(s): R79.89 - OTHER SPECIFIED ABNORMAL FINDINGS OF BLOOD CHEMISTRY Status: Acute Priority: High Current Visit: Yes Onset Date: 03/12/20 Annotation/Comment:: Note syncopal episode prior to placement of the patient in observation status. No direct clinical evidence of DVT or PE. CTA of the chest will be conducted later this morning with patient started on the VTE dose of Lovenox with probable venous Doppler studies of the lower extremities to be conducted on an outpatient basis. (3) Hypoalbuminemia SNOMED Code(s): 959065952 Code(s): E88.09 - OTH DISORDERS OF PLASMA-PROTEIN METABOLISM, NEC Status: Acute Priority: Medium Current Visit: Yes Onset Date: 03/12/20 Annotation/Comment:: Observe for now. Note mild obesity (4) Elevated CK SNOMED Code(s): 149232285 Code(s): R74.8 - ABNORMAL LEVELS OF OTHER SERUM ENZYMES Status: Acute Priority: High Current Visit: Yes Onset Date: 03/12/20 Annotation/Comment: : No direct clinical evidence of rhabdomyolysis with normal renal function and patient aggressively hydrated during her observation care. No arthralgias, myalgias, etc. Observe for now. Repeat blood work in the a.m. (5) Fluid overload SNOMED Code(s): 72912496 Code(s): E87.70 - FLUID OVERLOAD, UNSPECIFIED Status: Acute Priority: High Current Visit: Yes Onset Date: 03/12/20 Qualifiers: Hypervolemia type: other Qualified Code(s): E87.79 - Other fluid overload Annotation/Comment:: Mild fluid overload secondary to aggressive IV hydration during her observation care. IV fluids will be discontinued at this time. No clinical evidence of significant CHF either by exam or today's x-ray. Consider echocardiogram depending on her clinical course. (6) Elevated lactic acid level SNOMED Code(s): 2198315 Code(s): R79.89 - OTHER SPECIFIED ABNORMAL FINDINGS OF BLOOD CHEMISTRY Status: Acute Priority: Medium Current Visit: Yes Onset Date: 03/11/20 Annotation/Comment:: No clinical evidence of sepsis. Note current UTI with initiation of Macrobid yesterday. Rapid normalization of patient's lactic acid levels with serial blood evaluations after aggressive IV hydration. (7) Hypokalemia SNOMED Code(s): 64916252 Code(s): E87.6 - HYPOKALEMIA Status: Acute Priority: Medium Current Visit: Yes Onset Date: 03/12/20 Annotation/Comment:: Aggressive oral potassium chloride supplementation with normal potassium level today. Hydrochlorothiazide discontinued as above. Hold on further oral potassium chloride supplementation for now. (8) Hypomagnesemia SNOMED Code(s): 203543102 Code(s): E83.42 - HYPOMAGNESEMIA Status: Acute Priority: Medium Current Visit: Yes Onset Date: 03/11/20 Annotation/Comment:: Aggressive magnesium replacement by means of 2 g of IV magnesium sulfate on 03/11 with a normal magnesium level today. Note discontinuation of hydrochlorothiazide as above. Initiate oral magnesium oxide depending on her clinical course with repeat magnesium level tomorrow. (9) Anxiety and depression SNOMED Code(s): 588462409 Code(s): F41.9 - ANXIETY DISORDER, UNSPECIFIED; F32.9 - MAJOR DEPRESSIVE DISORDER, SINGLE EPISODE, UNSPECIFIED Status: Chronic Priority: Medium Current Visit: Yes Annotation/Comment:: Stable per history during this hospitalization. Continue to observe closely by her regular provider. (10) Hypertension SNOMED Code(s): 85683174 Code(s): I10 - ESSENTIAL (PRIMARY) HYPERTENSION Status: Chronic Priority : Low Current Visit: Yes Qualifiers: Hypertension type: essential hypertension Qualified Code(s): I10 - Essential (primary) hypertension Annotation/Comment:: As above (11) UTI (urinary tract infection) SNOMED Code(s): 28654507 Code(s): N39.0 - URINARY TRACT INFECTION, SITE NOT SPECIFIED Status: Acute Priority: High Current Visit: Yes Onset Date: 03/11/20 Qualifiers: Urinary tract infection type: acute cystitis Hematuria presence: without hematuria Qualified Code(s): N30.00 - Acute cystitis without hematuria Annotation/Comment:: Macrobid initiated as above. Urine culture and sensitivity results are still pending. - Problem List Review Problem List Initiated/Reviewed/Updated: Yes - My Orders Last 24 Hours: My Active Orders 03/11/20 15:30 CULTURE URINE [RM] Routine 03/11/20 15:33 Communication Order [RC] 03/11/20 15:34 Temazepam [Restoril] 15 mg PO BEDTIME PRN 03/11/20 15:41 Sodium Chloride 0.9% [Normal Saline] 1,000 ml IV ASDIRECTED 03/11/20 18:00 Nitrofurantoin Tripp/Macrocryst [Macrobid] 100 mg PO BID 03/11/20 20:00 Gabapentin [Neurontin] 100 mg PO DAILY@03/12/20 05:11 EKG Documentation Completion [RC] ASDIRECTED Chest 2V [CR] Routine FERRITIN [CHEM] Routine IRON/TIBC [CHEM] Routine 03/12/20 09:01 Admission Status [Patient Status] [ADT] Routine Chest PE [Ang Chest] [CT] Stat 03/12/20 09:06 Iopamidol [Isovue-370 (76%)] 100 ml IVPUSH ONETIME ONE 03/12/20 09:15 Enoxaparin [Lovenox] 80 mg SUBCUT Q12H Metoprolol Succinate [Toprol XL] 25 mg PO DAILY 03/12/20 Breakfast Heart Healthy Diet [DIET] 03/12/20 Dinner Nothing per Oral Now Diet [DIET] 03/13/20 05:11 EKG Documentation Completion [RC] ASDIRECTED CBC WITH AUTO DIFF [HEME] Routine CK W CKMB [CHEM] Routine COMPREHENSIVE METABOLIC PN,CMP [CHEM] Routine D-DIMER QUANTITATIVE [COAG] Routine GLYCOSYLATED HEMOGLOBIN,HGBA1C [CHEM] Routine LIPID PANEL [CHEM] Routine PRO B-TYPE NATRIUR PEPT,BNPPRO [CHEM] Routine TROPONIN I [CHEM] Routine EKG 12 Lead [EK] Routine - Assessment Assessment:: As above - Plan Plan:: As above. Various therapeutic options were discussed with the patient, including further workup of her possible anterior wall cardiac ischemia and d- dimer elevation as above. She is in agreement to changing her current hospitalization from observation to inpatient care secondary to the necessity of further workup as above. Extensive precautions were given to the patient, who is in agreement with the treatment plan. The patient will require about 3- 4 days of inpatient/acute care secondary to multiple health problems as above.
[2020-03-12] MEDS: Metoprolol Succinate 25 MG Tab.ER PO SCH (10:21)
[2020-03-12] MEDS: Venlafaxine 37.5 MG Cap.ER PO SCH (10:22)
[2020-03-12] MEDS: Venlafaxine 75 MG Cap.ER PO SCH (10:22)
[2020-03-12] MEDS: Gabapentin 100 MG Cap PO SCH ×2 (13:12→20:28)
[2020-03-12] MEDS ORDERED: Venlafaxine 75 MG Cap.ER PO ONE (15:58)
[2020-03-12] MEDS: Enoxaparin 80 MG/0.8 ML Syringe SUBCUT SCH (20:27)
[2020-03-12] MEDS: Acetaminophen 500 MG Tab PO PRN (20:32)
[2020-03-13 07:58] LABS: HEMOGLOBIN A1C 5.1 % (4.3-5.7)
[2020-03-13] MEDS: Nitrofurantoin Monohydrate/Macrocrystalline 100 MG Cap PO SCH (08:00)
[2020-03-13] MEDS: Metoprolol Succinate 25 MG Tab.ER PO SCH (08:00)
[2020-03-13] MEDS: Venlafaxine 37.5 MG Cap.ER PO SCH (08:00)
[2020-03-13] MEDS: Venlafaxine 75 MG Cap.ER PO SCH (08:00)
[2020-03-13] MEDS: Enoxaparin 80 MG/0.8 ML Syringe SUBCUT SCH (08:01)
[2020-03-13 08:15] LABS: CHLORIDE,CL 105 mmol/L (98-107); SODIUM,NA 140 mmol/L (136-145)
--- NOTE | 2020-03-13 09:24 | PCM.DCSUM1 ---
Discharge Summary - Hospital Course HPI Initial Comments: See emergency room note/admission H&P Brief History: See emergency room note/admission H&P Diagnosis: Stroke: No Modified Mcbee Scale: No Symptoms at All Modified Mcbee Scale Score: 0 - Discharge Data Discharge Date: 03/13/20 Discharge Disposition: Home, Self-Care 01 Condition: Good - Referral to Home Health Primary Care Physician: Gary Rockwell MD - Discharge Diagnosis/Problem(s) (1) Syncope SNOMED Code(s): 118004643 ICD Code: R55 - SYNCOPE AND COLLAPSE Status: Acute Priority: High Current Visit: Yes Onset Date: 03/12/20 Problem Details: No return of syncopal type symptoms with normal orthostatics this morning. Nonspecific brief dizziness and nonspecific headache lasting only for a couple of seconds at time of orthostatic measurements by patient history, however not clinically relevant. Various therapeutic options were discussed with the patient with echocardiogram to be performed on an outpatient basis on 03/15. Provider will decide whether a further Cardiolite stress test is warranted depending on patient's clinical course and echocardiogram findings as above. Syncopal episode initially suspected secondary to patient's diarrhea and possible vasovagal episode. Note, however, d-dimer elevation on 03/12 with negative CTA of the chest for PE and venous Doppler studies of the lower extremities to be conducted on an outpatient basis on 03/14. No chest pain or anginal type symptoms during entire hospitalization despite evidence of some anterior wall cardiac ischemia by serial EKGs, although improved and only borderline EKG results today as below. Negative workup for acute KS. Activity restrictions, fall precautions, etc. were discussed. Mild change in troponin I, which was still normal with additional normal cardiac index. Note initial nonspecific elevation of CPK with normal CK-MB on 03/12 with normal values on 03/13. Subcutaneous Lovenox was initiated on 03/12 as below. She is not symptomatic at this time with no further anticoagulation therapy after discharge. Note that patient's prazosin and hydrochlorothiazide could also be contributing factors to patient's syncope. These medications were not reinitiated on admission. Initiate low-dose Toprol XL for now secondary to mildly elevated blood pressures during this hospitalization, which did improve with this medication. Diarrhea was resolved shortly after admission with patient now having some constipation, although she does not wish to have any further medications for this problem at this time. Qualifiers: Syncope type: unspecified Qualified Code(s): R55 - Syncope and collapse (2) D-dimer, elevated SNOMED Code(s): 908340121 ICD Code: R79.89 - OTHER SPECIFIED ABNORMAL FINDINGS OF BLOOD CHEMISTRY Status: Acute Priority: High Current Visit: Yes Onset Date: 03/12/20 Problem Details: As above. Note syncopal episode prior to placement of the patient in observation status. No direct clinical evidence of DVT or PE. The patient was started on the VTE dose of Lovenox on 03/12. COVID-19 results are still pending. (3) Hypoalbuminemia SNOMED Code(s): 425137613 ICD Code: E88.09 - OTH DISORDERS OF PLASMA-PROTEIN METABOLISM, NEC Status: Acute Priority: Medium Current Visit: Yes Onset Date: 03/12/20 Problem Details: Observe for now. Note mild obesity (4) Elevated CK SNOMED Code(s): 357208594 ICD Code: R74.8 - ABNORMAL LEVELS OF OTHER SERUM ENZYMES Status: Acute Priority: High Current Visit: Yes Onset Date: 03/12/20 Problem Details: As above. No direct clinical evidence of rhabdomyolysis with normal renal function and patient aggressively hydrated during her observation care. No arthralgias, myalgias, etc. (5) Fluid overload SNOMED Code(s): 14312306 ICD Code: E87.70 - FLUID OVERLOAD, UNSPECIFIED Status: Acute Priority: High Current Visit: Yes Onset Date: 03/12/20 Problem Details: Mild fluid overload secondary to aggressive IV hydration during her observation care. IV fluids were discontinued on 03/12. No clinical evidence of significant CHF either by exam or today's x-ray. Echocardiogram on an outpatient basis as above secondary to her syncopal episode. Qualifiers: Hypervolemia type: other Qualified Code(s): E87.79 - Other fluid overload (6) Elevated lactic acid level SNOMED Code(s): 5644909 ICD Code: R79.89 - OTHER SPECIFIED ABNORMAL FINDINGS OF BLOOD CHEMISTRY Status: Acute Priority: Medium Current Visit: Yes Onset Date: 03/11/20 Problem Details: No clinical evidence of sepsis. Note current UTI with initiation of Macrobid yesterday. Rapid normalization of patient's lactic acid levels with serial blood evaluations after aggressive IV hydration. (7) Hypokalemia SNOMED Code(s): 75591551 ICD Code: E87.6 - HYPOKALEMIA Status: Acute Priority: Medium Current Visit: Yes Onset Date: 03/12/20 Problem Details: Aggressive oral potassium chloride supplementation with normal potassium level starting on 03/12. Hydrochlorothiazide discontinued as above with initial aggressive treatment with oral potassium chloride supplementation with no further potassium supplementation for now. Close follow-up by regular provider. (8) Hypomagnesemia SNOMED Code(s): 207441384 ICD Code: E83.42 - HYPOMAGNESEMIA Status: Acute Priority: Medium Current Visit: Yes Onset Date: 03/11/20 Problem Details: Aggressive magnesium replacement by means of 2 g of IV magnesium sulfate on 03/11 with a normal magnesium level today. Note discontinuation of hydrochlorothiazide as above. Initiate oral magnesium oxide by her regular provider depending on her clinical course with repeat magnesium level at her follow-up appointment. (9) Anxiety and depression SNOMED Code(s): 260952518 ICD Code: F41.9 - ANXIETY DISORDER, UNSPECIFIED; F32.9 - MAJOR DEPRESSIVE DISORDER, SINGLE EPISODE, UNSPECIFIED Status: Chronic Priority: Medium Current Visit: Yes Problem Details: Stable per history during this hospitalization. Continue to observe closely by her regular provider. (10) Hypertension SNOMED Code(s): 53711442 ICD Code: I10 - ESSENTIAL (PRIMARY) HYPERTENSION Status: Chronic Priority : Low Current Visit: Yes Problem Details: As above Qualifiers: Hypertension type: essential hypertension Qualified Code(s): I10 - Essential (primary) hypertension (11) UTI (urinary tract infection) SNOMED Code(s): 68460189 ICD Code: N39.0 - URINARY TRACT INFECTION, SITE NOT SPECIFIED Status: Acute Priority: High Current Visit: Yes Onset Date: 03/11/20 Problem Details: Macrobid initiated as above. Urine culture and sensitivity results positive for Escherichia coli infection, which is sensitive to Macrobid. Close follow-up by her regular provider. Qualifiers: Urinary tract infection type: acute cystitis Hematuria presence: without hematuria Qualified Code(s): N30.00 - Acute cystitis without hematuria (12) Dyslipidemia SNOMED Code(s): 836033144 ICD Code: E78.5 - HYPERLIPIDEMIA, UNSPECIFIED Status: Acute Priority: Medium Current Visit: Yes Onset Date: 03/13/20 Problem Details: Mild dyslipidemia by blood work on 03/13 with no change in medical therapy for now. Dietary information provided at discharge with weight loss in moderation. Note normal glycosylated hemoglobin of 5.1% on 03/13. Consider a repeat lipid profile in about 3 months. (13) Hypocalcemia SNOMED Code(s): 0275173 ICD Code: E83.51 - HYPOCALCEMIA Status: Acute Priority: Medium Current Visit: Yes Onset Date: ~03/11/20 Problem Details: Improved. Observe for now. (14) Anemia SNOMED Code(s): 592944106 ICD Code: D64.9 - ANEMIA, UNSPECIFIED Status: Acute Priority: Medium Current Visit: Yes Onset Date: ~03/11/20 Problem Details: Resolved. Possibly secondary to fluid overload. Vitamin B-12 level was normal. TIBC panel and ferritin level are still pending. No evidence of acute GI bleed, etc. Qualifiers: Anemia type: other cause Other causes of anemia: other cause, not classified Qualified Code(s): D64.89 - Other specified anemias - Patient Summary/Data Operative Procedure(s) Performed: None Complications: None Consults: None Labs Pending at D/C: 1. TIBC panel and ferritin level 2. COVID-19 screen Recommended Follow-up Testing/Procedures: As above and as per discharge instructions Planned Operative Procedure(s) after DC: None Hospital Course: The patient was initially placed in observation status secondary to a syncopal episode with long hospitalization required secondary to newly diagnosed d-dimer elevation, fluid overload, etc. as above. Patient was changed to inpatient/ acute care on 03/12 with negative workup for acute KS, etc. as above. She responded extremely well to treatment measures as above with no significant complications during this hospitalization. - Patient Instructions Diet: Heart Healthy Diet Activity: No Strenuous Activities (50% maximum exercise restrictions with fall precautions as discussed) Driving: May Drive Today Showering/Bathing: May Shower Notify Provider of: Fever, Increased Pain, Nausea and/or Vomiting Other/Special Instructions: 1. Followup with your regular provider in 7-10 days as directed for reevaluation and recommended repeat CBC, comprehensive metabolic panel, d-dimer, troponin I, CK, CK-MB, BNP, magnesium level, UA, urine with culture and sensitivity, and EKG. Bring these discharge instructions with you to that visit. 2. Venous Doppler studies of your legs bilaterally will be conducted in this facility at 10:30 a.m. tomorrow morning. 3. This Facility will contact you tomorrow concerning the time of your echocardiogram in this facility on 03/14. 4. Discuss venous Doppler study and echocardiogram results with your regular provider at the above follow-up visit with preliminary report to be obtained from on-call physician prior to leaving this facility on the above dates. 5. Consider scheduling a Cardiolite stress test on an outpatient basis through your regular provider at follow-up depending on your clinical course especially in light of EKG changes during this hospitalization. 6. Weight loss in moderation as discussed with dietary information provided. Consider a repeat fasting lipid profile in 3 months. 7. Obtain quarantine until your COVID-19 results have been obtained as discussed. 8. Immediately after this visit verify that your cellular telephone's voicemail has been activated and is empty. Also verify that your home telephone 's answering machine is operating properly and has space to receive messages. Note that it is sometimes necessary for us to be able to contact you at a later date to discuss your medical care. 9. Please remember that we are ALWAYS here for you and want to answer any questions you may have. Feel free to call the hospital any time and we call you back [facility]. 10. Make sure to complete the entire prescription of your Macrobid, both the supply given at time of discharge and the additional prescription at your pharmacy, for your urinary tract infection. SYMPTOMS TO LOOK OUT FOR: You have been hospitalized for your passing out episode and you should look out for the following symptoms after discharge: 1. Make absolutely certain that you completely understand the reasons you are taking any of your new and/or old medications and/or supplements as discussed with you by the nurse at time of discharge. This includes possible side effects versus interactions between your medications and/ or supplements. Don't be afraid to take extra time to ask any questions or express any concerns, because that is what we are here for. It is very important to us that you understand your care. 2. Notify this facility, telephone number [phone], and/or your regular provider [facility], if you experience any of the following symptoms: a. Sudden chest pressure or pain especially with radiation to the neck, jaws, arms, mid back, etc. especially if these are associated with nausea, cold sweats, dizziness, racing heart, weakness , near fainting, etc. b. Any shortness of breath or decreased exercise tolerance that has changed since your hospital discharge and is not normal for you. c. Any persistent heartburn type symptoms that is not normal for you and is not relieved by any of your discharge medications or supplements. d. Any progressive weight gain especially more than 5 pounds of weight gain prior to your scheduled appointment with your regular provider. e. Any racing heart, dizziness, etc. not associated with the other symptoms as above. f. Any persistent fever equal to or greater than 100.5, which does not respond to recommended doses of Tylenol, ibuprofen, Aleve, or other previously prescribed fever medications - Discharge Plan *PRESCRIPTION DRUG MONITORING PROGRAM REVIEWED*: Not Applicable *COPY OF PRESCRIPTION DRUG MONITORING REPORT IN PATIENT CHARLES: Not Applicable Prescriptions/Med Rec: Metoprolol Succinate [Toprol XL] 25 mg PO DAILY #30 tab.er Nitrofurantoin Patrick/Macrocryst [Nitrofurantoin Patrick-MCR] 100 mg PO BID #10 cap Home Medications: Home Meds Gabapentin [Neurontin] 200 mg PO DAILY 12/20/19 [History] Venlafaxine HCl [Venlafaxine ER] 37.5 mg PO DAILY 12/20/19 [History] Venlafaxine HCl [Venlafaxine ER] 150 mg PO DAILY 12/20/19 [History] Gabapentin [Neurontin] 100 mg PO DAILY@14,20 03/11/20 [History] Acetaminophen [Tylenol Extra Strength] 1,000 mg PO Q6H PRN tablet 03/13/20 [Rx] Metoprolol Succinate [Toprol XL] 25 mg PO DAILY #30 tab.er 03/13/20 [Rx] Nitrofurantoin Patrick/Macrocryst [Nitrofurantoin Patrick-MCR] 100 mg PO BID #10 cap 03/13/20 [Rx] Venlafaxine [Effexor XR] 37.5 mg PO DAILY cap.er 03/13/20 [Rx] Venlafaxine [Effexor XR] 150 mg PO DAILY cap.er 03/13/20 [Rx] Oxygen Therapy Mode: Room Air Patient Handouts: Heart-Healthy Eating Plan, [id number], Acute Urinary Retention, Female, [id number], Syncope, [id number] Forms: ED Department Discharge Referrals: Emelina Rockwell MD [Primary Care Provider] - - Discharge Summary/Plan Comment DC Time >30 min.: Yes (Coordination of care ) Discharge Summary/Plan Comment: As above. Extensive precautions were given to the patient, who is in agreement with the treatment plan. See Patient Instructions for further treatment and plan. - General Info Date of Service: 03/13/20 Admission Dx/Problem (Free Text: Syncope Functional Status: Reports: Pain Controlled, Tolerating Diet, Ambulating, Urinating, New Symptoms. Denies: Incentive Spirometry Numeric/FACES Score: 0 - Review of Systems General: Reports: No Symptoms. Denies: Fever, Weakness, Fatigue, Malaise, Night Sweats, Appetite (Good) HEENT: Reports: Headaches (Very brief as above). Denies: Dysphasia, Ear Pain, Post Nasal Drip, Sinus Congestion, Rhinitis, Visual Changes Pulmonary: Reports: No Symptoms. Denies: Shortness of Breath, Pleuritic Chest Pain, Cough, Sputum, Hemoptysis, Wheezing Cardiovascular: Reports: Lightheadedness (Brief as above?). Denies: Chest Pain , Palpitations, Dyspnea on Exertion, Orthopnea, PND, Edema Gastrointestinal: Reports: Constipation. Denies: Abdominal Pain, Decreased Appetite, Diarrhea, Difficulty Swallowing, Flatus, Hematochezia, Melena, Nausea , Vomiting Genitourinary: Reports: No Symptoms. Denies: Dysuria, Frequency, Burning, Pain , Urgency, Incontinence, Hematuria, Retention, Flank Pain Musculoskeletal: Reports: No Symptoms. Denies: Neck Pain, Shoulder Pain, Arm Pain, Hand Pain, Back Pain, Leg Pain Skin: Reports: No Symptoms. Denies: Diaphoresis, Bruising, Pruritis Neurological: Reports: Dizziness (As above), Headache (As above). Denies: Numbness, Paresthesia, Seizure, Tingling, Difficulty Walking, Weakness Psychiatric: Reports: No Symptoms. Denies: Confusion, Depression, Anxiety, Agitation, Hallucinations, Homicidal Ideation - Patient Data Vitals - Most Recent: Last Vital Signs Temp 36.7 C 03/13/20 06:00 Pulse 748 H 03/13/20 08:00 Resp 20 03/13/20 06:00 BP 141/89 H 05/03/20 08:00 Pulse Ox 94 L 03/13/20 06:00 Orthostatic Blood Pressure [ 137/93 Standing] Orthostatic Blood Pressure [ 141/95 Sitting] Orthostatic Blood Pressure [ 128/77 Supine] Vital Signs - 24 hr 03/12/20 03/12/20 03/12/20 10:21 12:00 17:20 Temperature [ 36.8 C 36.6 C Oral] Pulse, 82 Peripheral Pulse, 75 77 Peripheral [ Pulse Oximetry] Respiratory 20 20 Rate Blood Pressure 146/92 H Blood Pressure 145/94 H 139/89 [Left Upper Arm ] O2 Sat by Pulse 95 97 Oximetry 03/13/20 03/13/20 03/13/20 00:00 06:00 08:00 Temperature [ 36.6 C 36.7 C Oral] Pulse, 748 H Peripheral Pulse, 71 78 Peripheral [ Pulse Oximetry] Respiratory 16 20 Rate Blood Pressure 141/89 H Blood Pressure 147/93 H 141/89 H [Left Upper Arm ] O2 Sat by Pulse 96 94 L Oximetry Orthostatic Blood Pressure [ 137/93 Standing] Orthostatic Blood Pressure [ 141/95 Sitting] Orthostatic Blood Pressure [ 128/77 Supine] Weight - Most Recent: 96.162 kg I&O - Last 24 hours: Intake & Output 03/12/20 03/13/20 03/13/20 22:59 06:59 14:59 Intake Total 300 Output Total 1000 600 600 Balance -700 -600 -600 Imaging Impressions - Last 24 hrs: weather anchor showed normal 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 Possible mild pulmonary obstructive disease CTA of the chest using PE protocol in 03/12/20 was negative for PE with incidental borderline right axillary lymph node Lab Results - Last 24 hrs: Laboratory Results - last 24 hr 03/13/20 03/13/20 03/13/20 Range/Units 07:15 07:15 07:15 WBC 6.1 (4.0-10.2) K/uL RBC 4.18 (3.77-5.09) M/uL Hgb 12.8 (11.7-15.5) g/dL Hct 39.1 (34.0-46.0) % MCV 93.5 (84.0-98.0) fL MCH 30.6 (28.2-33.3) pg MCHC 32.7 (31.7-36.0) g/dL RDW 12.7 (11.2-14.1) % Plt Count 293 (150-350) K/uL Neut % (Auto) 51.1 (45.0-80.0) % Lymph % (Auto) 37.0 (10.0-50.0) % Patrick % (Auto) 8.8 (2.0-14.0) % Eos % (Auto) 2.6 (0.0-5.0) % Baso % (Auto) 0.5 (0.0-2.0) % Neut # (Auto) 3.14 (1.40-7.00) K/uL Lymph # (Auto) 2.27 (0.50-3.50) K/uL Patrick # (Auto) 0.54 (0.00-1.00) K/uL Eos # (Auto) 0.16 (0.00-0.50) K/uL Baso # (Auto) 0.03 (0.00-0.20) K/uL D-Dimer, Quantitative 355 (0-400) ng/mL Sodium 140 (136-145) mmol/L Potassium 3.9 (3.5-5.1) mmol/L Chloride 105 (98-107) mmol/L Carbon Dioxide 24.7 (21.0-32.0) mmol/L BUN 10 (7-18) mg/dL Creatinine 0.65 (0.51-1.17) mg/dL Est Cr Clr Drug Dosing 93.76 mL/min Estimated GFR (MDRD) > 60 mL/min Glucose 94 (74-106) mg/dL Hemoglobin A1c (4.3-5.7) % Calcium 8.0 L (8.5-10.1) mg/dL Magnesium 2.1 (1.8-2.4) mg/dL Total Bilirubin 0.2 (0.2-1.0) mg/dL AST 22 (15-37) U/L ALT 30 (12-78) U/L Alkaline Phosphatase 70 (46-116) IU/L Creatine Kinase 296 (26-308) U/L Creatine Kinase Index 0.3 (0.0-2.5) % CK-MB (CK-2) 0.80 (0.00-3.60) ng/mL Troponin I 0.000 (0.000-0.056) ng/mL NT-Pro-B Natriuret Pep 119 (0-125) pg/mL Total Protein 7.1 (6.4-8.2) g/dL Albumin 3.3 L (3.4-5.0) g/dL Triglycerides 174 H (30-150) mg/dL Cholesterol 208 H (100-200) mg/dL LDL Cholesterol, Calc 139 H (0-100) mg/dL HDL Cholesterol 34 L (40-60) mg/dL 03/13/20 Range/Units 07:15 WBC (4.0-10.2) K/uL RBC (3.77-5.09) M/uL Hgb (11.7-15.5) g/dL Hct (34.0-46.0) % MCV (84.0-98.0) fL MCH (28.2-33.3) pg MCHC (31.7-36.0) g/dL RDW (11.2-14.1) % Plt Count (150-350) K/uL Neut % (Auto) (45.0-80.0) % Lymph % (Auto) (10.0-50.0) % Patrick % (Auto) (2.0-14.0) % Eos % (Auto) (0.0-5.0) % Baso % (Auto) (0.0-2.0) % Neut # (Auto) (1.40-7.00) K/uL Lymph # (Auto) (0.50-3.50) K/uL Patrick # (Auto) (0.00-1.00) K/uL Eos # (Auto) (0.00-0.50) K/uL Baso # (Auto) (0.00-0.20) K/uL D-Dimer, Quantitative (0-400) ng/mL Sodium (136-145) mmol/L Potassium (3.5-5.1) mmol/L Chloride (98-107) mmol/L Carbon Dioxide (21.0-32.0) mmol/L BUN (7-18) mg/dL Creatinine (0.51-1.17) mg/dL Est Cr Clr Drug Dosing mL/min Estimated GFR (MDRD) mL/min Glucose (74-106) mg/dL Hemoglobin A1c 5.1 (4.3-5.7) % Calcium (8.5-10.1) mg/dL Magnesium (1.8-2.4) mg/dL Total Bilirubin (0.2-1.0) mg/dL AST (15-37) U/L ALT (12-78) U/L Alkaline Phosphatase (46-116) IU/L Creatine Kinase (26-308) U/L Creatine Kinase Index (0.0-2.5) % CK-MB (CK-2) (0.00-3.60) ng/mL Troponin I (0.000-0.056) ng/mL NT-Pro-B Natriuret Pep (0-125) pg/mL Total Protein (6.4-8.2) g/dL Albumin (3.4-5.0) g/dL Triglycerides (30-150) mg/dL Cholesterol (100-200) mg/dL LDL Cholesterol, Calc (0-100) mg/dL HDL Cholesterol (40-60) mg/dL Laboratory Tests 03/11/20 03/11/20 03/11/20 Range/Units 02:10 02:10 02:10 WBC 11.9 H (4.0-10.2) K/uL RBC 4.29 (3.77-5.09) M/uL Hgb 13.3 (11.7-15.5) g/dL Hct 38.8 (34.0-46.0) % MCV 90.4 (84.0-98.0) fL MCH 31.0 (28.2-33.3) pg MCHC 34.3 (31.7-36.0) g/dL RDW 12.9 (11.2-14.1) % Plt Count 326 (150-350) K/uL Neut % (Auto) 69.0 (45.0-80.0) % Lymph % (Auto) 25.1 (10.0-50.0) % Patrick % (Auto) 4.8 (2.0-14.0) % Eos % (Auto) 0.8 (0.0-5.0) % Baso % (Auto) 0.3 (0.0-2.0) % Neut # (Auto) 8.18 H (1.40-7.00) K/uL Lymph # (Auto) 2.97 (0.50-3.50) K/uL Patrick # (Auto) 0.57 (0.00-1.00) K/uL Eos # (Auto) 0.10 (0.00-0.50) K/uL Baso # (Auto) 0.03 (0.00-0.20) K/uL D-Dimer, Quantitative (0-400) ng/mL Sodium 139 (136-145) mmol/L Potassium 3.0 L (3.5-5.1) mmol/L Chloride 100 (98-107) mmol/L Carbon Dioxide 22.8 (21.0-32.0) mmol/L BUN 18 (7-18) mg/dL Creatinine 0.77 (0.51-1.17) mg/dL Est Cr Clr Drug Dosing 79.15 mL/min Estimated GFR (MDRD) > 60 mL/min Glucose 154 H (74-106) mg/dL Hemoglobin A1c (4.3-5.7) % Lactic Acid 3.3 H (0.4-2.0) mmol/L Calcium 9.1 (8.5-10.1) mg/dL Magnesium 1.6 L (1.8-2.4) mg/dL Total Bilirubin 0.3 (0.2-1.0) mg/dL AST 31 (15-37) U/L ALT 29 (12-78) U/L Alkaline Phosphatase 79 (46-116) IU/L Creatine Kinase (26-308) U/L Creatine Kinase Index (0.0-2.5) % CK-MB (CK-2) (0.00-3.60) ng/mL Troponin I (0.000-0.056) ng/mL NT-Pro-B Natriuret Pep (0-125) pg/mL Total Protein 7.7 (6.4-8.2) g/dL Albumin 3.9 (3.4-5.0) g/dL Triglycerides (30-150) mg/dL Cholesterol (100-200) mg/dL LDL Cholesterol, Calc (0-100) mg/dL HDL Cholesterol (40-60) mg/dL Vitamin B12 (193-986) pg/mL TSH, Ultra Sensitive (0.358-3.740) mIU/mL Specimen Type Urine Color Urine Appearance Urine pH (5.0-9.0) Ur Specific [place] (1.005-1.030) Urine Protein (NEGATIVE) mg/dL Urine Glucose (UA) (NEGATIVE) mg/dL Urine Ketones (NEGATIVE) mg/dL Urine Occult Blood (NEGATIVE) Urine Nitrite (NEGATIVE) Urine Bilirubin (NEGATIVE) Urine Urobilinogen (0.2-1.0) E.U./dL Ur Leukocyte Esterase (NEGATIVE) Urine RBC /HPF Urine WBC /HPF Ur Epithelial Cells /LPF Urine Bacteria (NONE TO FEW) /HPF 03/11/20 03/11/20 03/11/20 Range/Units 02:13 14:55 14:55 WBC 7.6 (4.0-10.2) K/uL RBC 3.60 L (3.77-5.09) M/uL Hgb 11.3 L D (11.7-15.5) g/dL Hct 33.7 L (34.0-46.0) % MCV 93.6 D (84.0-98.0) fL MCH 31.4 (28.2-33.3) pg MCHC 33.5 (31.7-36.0) g/dL RDW 13.4 (11.2-14.1) % Plt Count 293 (150-350) K/uL Neut % (Auto) 62.6 (45.0-80.0) % Lymph % (Auto) 27.5 (10.0-50.0) % Patrick % (Auto) 8.3 (2.0-14.0) % Eos % (Auto) 1.2 (0.0-5.0) % Baso % (Auto) 0.4 (0.0-2.0) % Neut # (Auto) 4.77 (1.40-7.00) K/uL Lymph # (Auto) 2.09 (0.50-3.50) K/uL Patrick # (Auto) 0.63 (0.00-1.00) K/uL Eos # (Auto) 0.09 (0.00-0.50) K/uL Baso # (Auto) 0.03 (0.00-0.20) K/uL D-Dimer, Quantitative (0-400) ng/mL Sodium 141 (136-145) mmol/L Potassium 3.7 (3.5-5.1) mmol/L Chloride 108 H (98-107) mmol/L Carbon Dioxide 24.2 (21.0-32.0) mmol/L BUN 13 (7-18) mg/dL Creatinine 0.71 (0.51-1.17) mg/dL Est Cr Clr Drug Dosing 85.84 mL/min Estimated GFR (MDRD) > 60 mL/min Glucose 104 (74-106) mg/dL Hemoglobin A1c (4.3-5.7) % Lactic Acid (0.4-2.0) mmol/L Calcium 7.7 L (8.5-10.1) mg/dL Magnesium (1.8-2.4) mg/dL Total Bilirubin (0.2-1.0) mg/dL AST (15-37) U/L ALT (12-78) U/L Alkaline Phosphatase (46-116) IU/L Creatine Kinase (26-308) U/L Creatine Kinase Index (0.0-2.5) % CK-MB (CK-2) (0.00-3.60) ng/mL Troponin I (0.000-0.056) ng/mL NT-Pro-B Natriuret Pep (0-125) pg/mL Total Protein (6.4-8.2) g/dL Albumin (3.4-5.0) g/dL Triglycerides (30-150) mg/dL Cholesterol (100-200) mg/dL LDL Cholesterol, Calc (0-100) mg/dL HDL Cholesterol (40-60) mg/dL Vitamin B12 (193-986) pg/mL TSH, Ultra Sensitive (0.358-3.740) mIU/mL Specimen Type Urinblad Urine Color Yellow Urine Appearance Clear Urine pH 6.5 (5.0-9.0) Ur Specific [place] 1.020 (1.005-1.030) Urine Protein Negative (NEGATIVE) mg/dL Urine Glucose (UA) Negative (NEGATIVE) mg/dL Urine Ketones Trace H (NEGATIVE) mg/dL Urine Occult Blood Negative (NEGATIVE) Urine Nitrite Positive H (NEGATIVE) Urine Bilirubin Negative (NEGATIVE) Urine Urobilinogen 0.2 (0.2-1.0) E.U./dL Ur Leukocyte Esterase Negative (NEGATIVE) Urine RBC Not seen /HPF Urine WBC Not seen /HPF Ur Epithelial Cells Occasional /LPF Urine Bacteria Many H (NONE TO FEW) /HPF 03/11/20 03/12/20 03/12/20 Range/Units 14:55 07:35 07:35 WBC 6.7 (4.0-10.2) K/uL RBC 3.84 (3.77-5.09) M/uL Hgb 11.9 (11.7-15.5) g/dL Hct 36.3 (34.0-46.0) % MCV 94.5 (84.0-98.0) fL MCH 31.0 (28.2-33.3) pg MCHC 32.8 (31.7-36.0) g/dL RDW 13.1 (11.2-14.1) % Plt Count 275 (150-350) K/uL Neut % (Auto) 55.6 (45.0-80.0) % Lymph % (Auto) 33.9 (10.0-50.0) % Patrick % (Auto) 8.6 (2.0-14.0) % Eos % (Auto) 1.6 (0.0-5.0) % Baso % (Auto) 0.3 (0.0-2.0) % Neut # (Auto) 3.73 (1.40-7.00) K/uL Lymph # (Auto) 2.28 (0.50-3.50) K/uL Patrick # (Auto) 0.58 (0.00-1.00) K/uL Eos # (Auto) 0.11 (0.00-0.50) K/uL Baso # (Auto) 0.02 (0.00-0.20) K/uL D-Dimer, Quantitative (0-400) ng/mL Sodium 142 (136-145) mmol/L Potassium 3.8 (3.5-5.1) mmol/L Chloride 109 H (98-107) mmol/L Carbon Dioxide 25.5 (21.0-32.0) mmol/L BUN 8 (7-18) mg/dL Creatinine 0.66 (0.51-1.17) mg/dL Est Cr Clr Drug Dosing 92.34 mL/min Estimated GFR (MDRD) > 60 mL/min Glucose 91 (74-106) mg/dL Hemoglobin A1c (4.3-5.7) % Lactic Acid 0.9 (0.4-2.0) mmol/L Calcium 7.3 L (8.5-10.1) mg/dL Magnesium 2.0 (1.8-2.4) mg/dL Total Bilirubin 0.3 (0.2-1.0) mg/dL AST 24 (15-37) U/L ALT 24 (12-78) U/L Alkaline Phosphatase 59 (46-116) IU/L Creatine Kinase 493 H (26-308) U/L Creatine Kinase Index 0.3 (0.0-2.5) % CK-MB (CK-2) 1.50 (0.00-3.60) ng/mL Troponin I 0.010 (0.000-0.056) ng/mL NT-Pro-B Natriuret Pep 258 H (0-125) pg/mL Total Protein 6.2 L (6.4-8.2) g/dL Albumin 2.9 L (3.4-5.0) g/dL Triglycerides (30-150) mg/dL Cholesterol (100-200) mg/dL LDL Cholesterol, Calc (0-100) mg/dL HDL Cholesterol (40-60) mg/dL Vitamin B12 297 (193-986) pg/mL TSH, Ultra Sensitive 1.187 (0.358-3.740) mIU/mL Specimen Type Urine Color Urine Appearance Urine pH (5.0-9.0) Ur Specific [place] (1.005-1.030) Urine Protein (NEGATIVE) mg/dL Urine Glucose (UA) (NEGATIVE) mg/dL Urine Ketones (NEGATIVE) mg/dL Urine Occult Blood (NEGATIVE) Urine Nitrite (NEGATIVE) Urine Bilirubin (NEGATIVE) Urine Urobilinogen (0.2-1.0) E.U./dL Ur Leukocyte Esterase (NEGATIVE) Urine RBC /HPF Urine WBC /HPF Ur Epithelial Cells /LPF Urine Bacteria (NONE TO FEW) /HPF 03/12/20 03/12/20 03/13/20 Range/Units 07:35 07:35 07:15 WBC 6.1 (4.0-10.2) K/uL RBC 4.18 (3.77-5.09) M/uL Hgb 12.8 (11.7-15.5) g/dL Hct 39.1 (34.0-46.0) % MCV 93.5 (84.0-98.0) fL MCH 30.6 (28.2-33.3) pg MCHC 32.7 (31.7-36.0) g/dL RDW 12.7 (11.2-14.1) % Plt Count 293 (150-350) K/uL Neut % (Auto) 51.1 (45.0-80.0) % Lymph % (Auto) 37.0 (10.0-50.0) % Patrick % (Auto) 8.8 (2.0-14.0) % Eos % (Auto) 2.6 (0.0-5.0) % Baso % (Auto) 0.5 (0.0-2.0) % Neut # (Auto) 3.14 (1.40-7.00) K/uL Lymph # (Auto) 2.27 (0.50-3.50) K/uL Patrick # (Auto) 0.54 (0.00-1.00) K/uL Eos # (Auto) 0.16 (0.00-0.50) K/uL Baso # (Auto) 0.03 (0.00-0.20) K/uL D-Dimer, Quantitative 686 H (0-400) ng/mL Sodium (136-145) mmol/L Potassium (3.5-5.1) mmol/L Chloride (98-107) mmol/L Carbon Dioxide (21.0-32.0) mmol/L BUN (7-18) mg/dL Creatinine (0.51-1.17) mg/dL Est Cr Clr Drug Dosing mL/min Estimated GFR (MDRD) mL/min Glucose (74-106) mg/dL Hemoglobin A1c (4.3-5.7) % Lactic Acid 0.7 (0.4-2.0) mmol/L Calcium (8.5-10.1) mg/dL Magnesium (1.8-2.4) mg/dL Total Bilirubin (0.2-1.0) mg/dL AST (15-37) U/L ALT (12-78) U/L Alkaline Phosphatase (46-116) IU/L Creatine Kinase (26-308) U/L Creatine Kinase Index (0.0-2.5) % CK-MB (CK-2) (0.00-3.60) ng/mL Troponin I (0.000-0.056) ng/mL NT-Pro-B Natriuret Pep (0-125) pg/mL Total Protein (6.4-8.2) g/dL Albumin (3.4-5.0) g/dL Triglycerides (30-150) mg/dL Cholesterol (100-200) mg/dL LDL Cholesterol, Calc (0-100) mg/dL HDL Cholesterol (40-60) mg/dL Vitamin B12 (193-986) pg/mL TSH, Ultra Sensitive (0.358-3.740) mIU/mL Specimen Type Urine Color Urine Appearance Urine pH (5.0-9.0) Ur Specific [place] (1.005-1.030) Urine Protein (NEGATIVE) mg/dL Urine Glucose (UA) (NEGATIVE) mg/dL Urine Ketones (NEGATIVE) mg/dL Urine Occult Blood (NEGATIVE) Urine Nitrite (NEGATIVE) Urine Bilirubin (NEGATIVE) Urine Urobilinogen (0.2-1.0) E.U./dL Ur Leukocyte Esterase (NEGATIVE) Urine RBC /HPF Urine WBC /HPF Ur Epithelial Cells /LPF Urine Bacteria (NONE TO FEW) /HPF 03/13/20 03/13/20 03/13/20 Range/Units 07:15 07:15 07:15 WBC (4.0-10.2) K/uL RBC (3.77-5.09) M/uL Hgb (11.7-15.5) g/dL Hct (34.0-46.0) % MCV (84.0-98.0) fL MCH (28.2-33.3) pg MCHC (31.7-36.0) g/dL RDW (11.2-14.1) % Plt Count (150-350) K/uL Neut % (Auto) (45.0-80.0) % Lymph % (Auto) (10.0-50.0) % Patrick % (Auto) (2.0-14.0) % Eos % (Auto) (0.0-5.0) % Baso % (Auto) (0.0-2.0) % Neut # (Auto) (1.40-7.00) K/uL Lymph # (Auto) (0.50-3.50) K/uL Patrick # (Auto) (0.00-1.00) K/uL Eos # (Auto) (0.00-0.50) K/uL Baso # (Auto) (0.00-0.20) K/uL D-Dimer, Quantitative 355 (0-400) ng/mL Sodium 140 (136-145) mmol/L Potassium 3.9 (3.5-5.1) mmol/L Chloride 105 (98-107) mmol/L Carbon Dioxide 24.7 (21.0-32.0) mmol/L BUN 10 (7-18) mg/dL Creatinine 0.65 (0.51-1.17) mg/dL Est Cr Clr Drug Dosing 93.76 mL/min Estimated GFR (MDRD) > 60 mL/min Glucose 94 (74-106) mg/dL Hemoglobin A1c 5.1 (4.3-5.7) % Lactic Acid (0.4-2.0) mmol/L Calcium 8.0 L (8.5-10.1) mg/dL Magnesium 2.1 (1.8-2.4) mg/dL Total Bilirubin 0.2 (0.2-1.0) mg/dL AST 22 (15-37) U/L ALT 30 (12-78) U/L Alkaline Phosphatase 70 (46-116) IU/L Creatine Kinase 296 (26-308) U/L Creatine Kinase Index 0.3 (0.0-2.5) % CK-MB (CK-2) 0.80 (0.00-3.60) ng/mL Troponin I 0.000 (0.000-0.056) ng/mL NT-Pro-B Natriuret Pep 119 (0-125) pg/mL Total Protein 7.1 (6.4-8.2) g/dL Albumin 3.3 L (3.4-5.0) g/dL Triglycerides 174 H (30-150) mg/dL Cholesterol 208 H (100-200) mg/dL LDL Cholesterol, Calc 139 H (0-100) mg/dL HDL Cholesterol 34 L (40-60) mg/dL Vitamin B12 (193-986) pg/mL TSH, Ultra Sensitive (0.358-3.740) mIU/mL Specimen Type Urine Color Urine Appearance Urine pH (5.0-9.0) Ur Specific [place] (1.005-1.030) Urine Protein (NEGATIVE) mg/dL Urine Glucose (UA) (NEGATIVE) mg/dL Urine Ketones (NEGATIVE) mg/dL Urine Occult Blood (NEGATIVE) Urine Nitrite (NEGATIVE) Urine Bilirubin (NEGATIVE) Urine Urobilinogen (0.2-1.0) E.U./dL Ur Leukocyte Esterase (NEGATIVE) Urine RBC /HPF Urine WBC /HPF Ur Epithelial Cells /LPF Urine Bacteria (NONE TO FEW) /HPF MANDY Results - Last 24 hrs: Microbiology 03/11/20 15:30 Urine Culture - Final Urine, Clean Catch Escherichia Coli Sensitivity to Macrobid Med Orders - Current: Current Medications Acetaminophen (Tylenol Extra Strength) 1,000 mg PO Q6H PRN PRN Reason: Pain Last Admin: 03/12/20 20:32 Dose: 1,000 mg Enoxaparin Sodium (Lovenox) 80 mg SUBCUT Q12H [facility] Last Admin: 03/13/20 08:01 Dose: 80 mg Gabapentin (Neurontin) 100 mg PO DAILY@14,20 [facility] Last Admin: 03/12/20 20:28 Dose: 100 mg Metoprolol Succinate (Toprol Xl) 25 mg PO DAILY [facility] Last Admin: 03/13/20 08:00 Dose: 25 mg Nitrofurantoin Macrocrystals (Macrobid) 100 mg PO BID [facility] Last Admin: 03/13/20 08:00 Dose: 100 mg Ondansetron HCl (Zofran) 4 mg IVPUSH Q6H PRN PRN Reason: Nausea/Vomiting Sodium Chloride (Saline Flush) 10 ml FLUSH ASDIRECTED PRN PRN Reason: Keep Vein Open Last Admin: 03/13/20 08:01 Dose: 10 ml Temazepam (Restoril) 15 mg PO BEDTIME PRN PRN Reason: Insomnia Venlafaxine HCl (Effexor Xr) 37.5 mg PO DAILY [facility] Last Admin: 03/13/20 08:00 Dose: 37.5 mg Venlafaxine HCl (Effexor Xr) 150 mg PO DAILY [facility] Last Admin: 03/13/20 08:00 Dose: 150 mg Discontinued Medications Enoxaparin Sodium (Lovenox) 80 mg SUBCUT Q12H [facility] Last Admin: 03/12/20 10:20 Dose: 80 mg Magnesium Sulfate/Dextrose 1 (gm/ Premix) 100 mls @ 100 mls/hr IV ONETIME ONE Stop: 03/11/20 04:05 Last Admin: 03/11/20 03:44 Dose: 100 mls/hr Sodium Chloride (Normal Saline) 1,000 mls @ 500 mls/hr IV .BOLUS ONE Stop: 03/11/20 05:09 Last Admin: 03/11/20 03:44 Dose: 500 mls/hr Magnesium Sulfate/Dextrose 1 (gm/ Premix) 100 mls @ 100 mls/hr IV ONETIME ONE Stop: 03/11/20 09:59 Last Admin: 03/11/20 08:50 Dose: 100 mls/hr Sodium Chloride (Normal Saline) 1,000 mls @ 150 mls/hr IV ASDIRECTED [facility] Last Admin: 03/11/20 12:37 Dose: 150 mls/hr Sodium Chloride (Normal Saline) 1,000 mls @ 80 mls/hr IV ASDIRECTED [facility] Last Infusion: 03/12/20 09:45 Dose: Infused Iopamidol (Isovue-370 (76%)) 100 ml IVPUSH ONETIME ONE Stop: 03/12/20 09:07 Last Admin: 03/12/20 09:47 Dose: 100 ml Ketorolac Tromethamine (Toradol) 30 mg IVPUSH Q6H PRN PRN Reason: Pain Stop: 03/16/20 03:14 Last Admin: 03/11/20 03:45 Dose: 30 mg Ketorolac Tromethamine (Toradol) 15 mg IVPUSH Q6H PRN PRN Reason: Pain (severe 7-10) Stop: 03/16/20 16:01 Ondansetron HCl (Zofran) 4 mg IVPUSH ONETIME ONE Stop: 03/11/20 03:09 Last Admin: 03/11/20 03:45 Dose: 4 mg Potassium Chloride (Klor-Con M20) 20 meq PO ONETIME ONE Stop: 03/11/20 03:10 Last Admin: 05/01/20 03:46 Dose: 20 meq Potassium Chloride (Klor-Con M20) 20 meq PO ONETIME ONE Stop: 03/11/20 06:01 Last Admin: 03/11/20 05:55 Dose: 20 meq Potassium Chloride (Klor-Con M20) 20 meq PO ONETIME ONE Stop: 03/11/20 09:01 Last Admin: 03/11/20 08:50 Dose: 20 meq Potassium Chloride (Klor-Con M20) 20 meq PO ONETIME ONE Stop: 03/11/20 12:01 Last Admin: 03/11/20 11:42 Dose: 20 meq Venlafaxine HCl (Effexor Xr) 37.5 mg PO ONETIME ONE Stop: 03/11/20 15:59 Last Admin: 03/11/20 16:30 Dose: 37.5 mg Venlafaxine HCl (Effexor Xr) 150 mg PO ONETIME ONE Stop: 03/11/20 16:16 Last Admin: 03/11/20 16:30 Dose: 150 mg - Exam Quality Assessment: Reports: DVT Prophylaxis (Lovenox). Denies: Supplemental Oxygen, Central Line/PICC, Urine Catheter, Skin Breakdown, Restraints General: Reports: Alert, Oriented, Cooperative, No Acute Distress HEENT: Reports: Pupils Equal, Pupils Reactive, EOMI, Mucous Membr. Moist/[place]. Denies: Scleral Icterus Neck: Reports: Supple, Trachea Midline, No JVD, No Thyromegaly, +2 Carotid Pulse wo Bruit. Denies: Lymphadenopathy Lungs: Reports: Clear to Auscultation, Normal Respiratory Effort. Denies: Rub Cardiovascular: Reports: Regular Rate, Regular Rhythm, No Murmurs. Denies: Gallops, Rubs GI/Abdominal Exam: Normal Bowel Sounds, Soft, Non-Tender, No Organomegaly, No Distention, No Abnormal Bruit, No Mass, Other (Obese). No: Guarding (Female) Exam: Deferred Rectal (Female) Exam: Deferred Back Exam: Reports: Normal Inspection, Full Range of Motion. Denies: CVA Tenderness (L), CVA Tenderness (R), Muscle Spasm Extremities: Normal Inspection, Normal Range of Motion, Non-Tender, No Pedal Edema, Normal Capillary Refill. No: Vanesa's Sign Skin: Reports: Warm, Dry, Intact. Denies: Ecchymosis Neurological: Reports: No New Focal Deficit Psy/Mental Status: Reports: Alert. Denies: Agitated, Hallucinations, Withdrawal Symptoms EKG INTERPRETATION EKG Date: 03/13/20 Time: 08:09 Rhythm: NSR Rate (Beats/Min): 61 [place]: Normal (Left versus a neutral) P-Wave: Present QRS: Normal (0.07 seconds) ST-T: Other (T-wave inversions in leads 3 and V1 and V2 with resolution in lead V3 and V4 since last EKG) QT: Normal ME/PQ Interval: 0.17 seconds Comparison: Change From Previous EKG (As above since 03/12/20) EKG Interpretation Comments: Possible anterior wall cardiac ischemia versus lead placement-improved
== END 2020-03-13 11:30 | disposition home or self-care (01) | DRG 204 ==
LOC: LL.ED 02:05 → UNDOADMOB 03:00 → LL.MS 03:00 → OBSVTOIN 03-12 09:01
PROVIDERS: ADMIT Emergency Medicine; ATTEND Family Medicine
DX: R55 Syncope and collapse (principal); R19.7 Diarrhea, unspecified; R79.89 Other specified abnormal findings of blood chemistry; Z68.41 Body mass index [BMI] 40.0-44.9, adult; E88.09 Other disorders of plasma-protein metabolism, not elsewhere classified; R74.8 Abnormal levels of other serum enzymes; E87.70 Fluid overload, unspecified; E87.6 Hypokalemia; E83.42 Hypomagnesemia; F41.9 Anxiety disorder, unspecified; T50.2X5A Adverse effect of carbonic-anhydrase inhibitors, benzothiadiazides and other diuretics, initial encounter; T44.6X5A Adverse effect of alpha-adrenoreceptor antagonists, initial encounter; K59.00 Constipation, unspecified; F32.9 Major depressive disorder, single episode, unspecified; I10 Essential (primary) hypertension; E66.9 Obesity, unspecified; N30.00 Acute cystitis without hematuria; E78.5 Hyperlipidemia, unspecified; E83.51 Hypocalcemia; D64.89 Other specified anemias; Z79.899 Other long term (current) drug therapy
CPT/HCPCS: 36415; 71046; 71275; 74019; 80048; 80053; 80061; 81001; 82550; 82553; 82607; 83036; 83605; 83735; 83880; 84443; 84484; 85025; 85379; 87086; 87088; 87186; 93005; 96361; 96365; 96366; 99285-25; A9270-GY; G0378; J1650; J1885; J2405; J3475; J7030; Q9967; U0002

== ENCOUNTER 2020-11-24 17:39 | Emergency (ER) | payer BC ==
--- NOTE | 2020-11-24 18:04 | EDM.PDOC ---
ED HPI GENERAL MEDICAL PROBLEM - General Chief Complaint: Upper Extremity Injury/Pain Stated Complaint: Fall; right wrist pain Time Seen by Provider: 11/24/20 17:50 Source of Information: Reports: Patient History Limitations: Reports: No Limitations - History of Present Illness INITIAL COMMENTS - FREE TEXT/NARRATIVE: Slipped and fell Now with pain in right wrist Onset: Today, Sudden Duration: Hour(s): Location: Reports: Upper Extremity, Right Context: Reports: Trauma - Related Data Allergies Allergy/AdvReac Type Severity Reaction Status Date / Time sulfamethoxazole Allergy Abdominal Verified 11/24/20 17:50 [From Bactrim] Pain trimethoprim [From Bactrim] Allergy Abdominal Verified 11/24/20 17:50 Pain Home Meds: Home Meds . 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 Below) Other CHANNEL REBUILDER History: fallopian tubes removed Psychiatric History: Reports: Anxiety, Depression, Psych Hospitalization(s) Endocrine/Metabolic History: Reports: Obesity/BMI 30+ - Past Surgical History HEENT Surgical History: Reports: Oral Surgery Musculoskeletal Surgical History: Reports: Other (See Below) Other Musculoskeletal Surgeries/Procedures:: spinal fusion to L4-L5 for herniated disc Social & Family History - Caffeine Use Caffeine Use: Reports: Coffee Review of Systems - Review of Systems Review Of Systems: See Below Musculoskeletal: Reports: Joint Pain, Other (Right wrist pain) ED EXAM, GENERAL - Physical Exam Exam: See Below Exam Limited By: No Limitations General Appearance: Alert, WD/WN, Mild Distress Extremities: Limited Range of Motion, Other (Right wrist tender with palpation or movement No ecchymosis No swelling or deformity) Course - Orders/Labs/Meds Orders: Active Orders 24 hr Category Date Time Status Wrist 2V Rt [CR] Stat Exams 11/24/20 17:41 Ordered - Re-Assessments/Exams Free Text/Narrative Re-Assessment/Exam: 11/24/20 18:01 Xray: No fracture Velcro splint placed per nursing Departure - Departure Time of Disposition: 18:15 Disposition: Home, Self-Care 01 Clinical Impression: Wrist contusion Qualifiers: Encounter type: initial encounter Laterality: right Qualified Code(s): S60.211A - Contusion of right wrist, initial encounter - Discharge Information *PRESCRIPTION DRUG MONITORING PROGRAM REVIEWED*: Not Applicable *COPY OF PRESCRIPTION DRUG MONITORING REPORT IN PATIENT CHARLES: Not Applicable Instructions: Contusion, [id number], How to Use Cold Therapy, [id number] Referrals: Tonja Gibson PA-C [Primary Care Provider] - Additional Instructions: Wear splint as needed Ice as needed Activity as tolerated Follow up in clinic - My Orders Last 24 Hours: My Active Orders 11/24/20 17:41 Wrist 2V Rt [CR] Stat - Assessment/Plan Last 24 Hours: My Active Orders 11/24/20 17:41 Wrist 2V Rt [CR] Stat
[2020-11-24 18:59] VITALS: BP 138/93; PULSE 85
== END 2020-11-24 18:30 | disposition home or self-care (01) ==
LOC: LL.ED 17:39
DX: S60.211A Contusion of right wrist, initial encounter (principal); I10 Essential (primary) hypertension; E66.9 Obesity, unspecified; Z88.2 Allergy status to sulfonamides; Z88.1 Allergy status to other antibiotic agents; W01.0XXA Fall on same level from slipping, tripping and stumbling without subsequent striking against object, initial encounter
CPT/HCPCS: 73100-RT; 99282; 99283-25

== ENCOUNTER 2021-10-19 13:31 | Emergency (ER) | payer BC ==
[2021-10-19] MEDS ORDERED: Ondansetron 4 MG/2 ML SDV IVPUSH ONE (13:59)
[2021-10-19] MEDS ORDERED: Ketorolac 30 MG/ML SDV IVPUSH ONE (13:59)
[2021-10-19] MEDS ORDERED: HYDROmorphone 1 MG/ML Syringe IVPUSH ONE (14:01)
[2021-10-19] MEDS ORDERED: methylPREDNISolone Sodium Succinate 40 MG/1 ML SDV IVPUSH ONE (14:02)
--- NOTE | 2021-10-19 14:11 | EDM.PDOC ---
ED HPI GENERAL MEDICAL PROBLEM - General Chief Complaint: Back Pain or Injury Stated Complaint: back pain Time Seen by Provider: 10/19/21 13:56 Source of Information: Reports: Patient History Limitations: Reports: No Limitations - History of Present Illness INITIAL COMMENTS - FREE TEXT/NARRATIVE: Patient comes to ER with complaint of acute low back pain with bilateral sciatic involvement that was triggered today when she was trying to shave her legs. Hx of previous back surgery for this about 10 years ago. Multiple herniated discs. Has done well overall since then. Noted back was more achy yesterday and this morning. Denies recent lifting/injury/new activity. No other recent changes/illness reported. Noted some tingling in both feet/toes immediately after the spasm started, that has improved. - Related Data Allergies Allergy/AdvReac Type Severity Reaction Status Date / Time sulfamethoxazole Allergy Abdominal Verified 10/19/21 14:06 [From Bactrim] Pain trimethoprim [From Bactrim] Allergy Abdominal Verified 10/19/21 14:06 Pain Home Meds: Home Meds Amoxicillin 500 mg PO BID 10/19/21 [History] Clarithromycin 500 mg PO BID 10/19/21 [History] Ketorolac [Toradol] 10 mg PO Q6H PRN #15 tab 10/19/21 [Rx] Omeprazole Magnesium [Prilosec Otc] 40 mg PO BID 10/19/21 [History] diazePAM [Valium] 2 mg PO TID PRN #9 tab 10/19/21 [Rx] traMADol [Ultram] 50 mg PO Q4H PRN #15 tab 10/19/21 [Rx] Past Medical History Cardiovascular History: Reports: Hypertension 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 (See Below) 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 ED EXAM, GENERAL - Physical Exam Exam: See Below Exam Limited By: Other (pain with movement) General Appearance: Moderate Distress, Obese Eye Exam: Bilateral Eye: EOMI, PERRL Ears: Hearing Grossly Normal Nose: No: Nasal Deformity, Nasal Swelling, Nasal Drainage Throat/Mouth: Normal Lips, Normal Voice, No Airway Compromise Head: Atraumatic, Normocephalic Neck: Supple, Non-Tender, Full Range of Motion Respiratory/Chest: No Respiratory Distress, Lungs Clear, Normal Breath Sounds, No Accessory Muscle Use, Chest Non-Tender Cardiovascular: Regular Rate, Rhythm, No Murmur GI/Abdominal: Soft, Non-Tender, No Distention (Female) Exam: Deferred Rectal (Female) Exam: Deferred Back Exam: Other (Patient unable to roll to side to allow examination) Extremities: Normal Capillary Refill, Other (Unable to lift either leg off bed actively or passively without extreme low back pain. DTRs also caused increaed LBP. ). No: Increased Warmth, Mottled, Pallor, Redness Neurological: Alert, Oriented, Normal Cognition, Normal Reflexes Psychiatric: Anxious Skin Exam: Warm, Dry, Intact, Normal Color Course - Vital Signs Last Recorded V/S: Last Vital Signs Temp 37.1 C 10/19/21 13:31 Pulse 68 10/19/21 16:15 Resp 20 10/19/21 16:00 BP 144/94 H 10/19/21 16:15 Pulse Ox 100 10/19/21 16:15 - Orders/Labs/Meds Labs: Laboratory Tests 10/19/21 10/19/21 10/19/21 Range/Units 14:10 14:10 15:10 WBC 8.3 (4.0-10.2) K/uL RBC 4.73 (3.77-5.09) M/uL Hgb 14.7 D (11.7-15.5) g/dL Hct 41.5 (34.0-46.0) % MCV 87.7 D (84.0-98.0) fL MCH 31.1 (28.2-33.3) pg MCHC 35.4 (31.7-36.0) g/dL RDW 12.5 (11.2-14.1) % Plt Count 303 (150-350) K/uL Neut % (Auto) 70.4 (45.0-80.0) % Lymph % (Auto) 22.0 (10.0-50.0) % [place] % (Auto) 6.4 (2.0-14.0) % Eos % (Auto) 0.8 (0.0-5.0) % Baso % (Auto) 0.4 (0.0-2.0) % Neut # (Auto) 5.86 (1.40-7.00) K/uL Lymph # (Auto) 1.83 (0.50-3.50) K/uL [place] # (Auto) 0.53 (0.00-1.00) K/uL Eos # (Auto) 0.07 (0.00-0.50) K/uL Baso # (Auto) 0.03 (0.00-0.20) K/uL Sodium 142 (136-145) mmol/L Potassium 3.6 (3.5-5.1) mmol/L Chloride 107 (98-107) mmol/L Carbon Dioxide 24.3 (21.0-32.0) mmol/L Anion Gap 10.7 (7-15) meq/L BUN 11 (7-18) mg/dL Creatinine 0.97 (0.51-1.17) mg/dL Est Cr Clr Drug Dosing TNP Estimated GFR (MDRD) > 60 mL/min Glucose 99 (70-99) mg/dL Calcium 9.1 (8.5-10.1) mg/dL Magnesium 2.2 (1.8-2.4) mg/dL Total Bilirubin 0.7 (0.2-1.0) mg/dL AST 29 (15-37) U/L ALT 59 (12-78) U/L Alkaline Phosphatase 61 (46-116) IU/L Total Protein 7.6 (6.4-8.2) g/dL Albumin 4.1 (3.4-5.0) g/dL Specimen Type Urincc Urine Color Gabi Urine Appearance Slightly cloudy Urine pH 6.5 (5.0-9.0) Ur Specific [place] >= 1.030 (1.005-1.030) Urine Protein 100 H (NEGATIVE) mg/dL Urine Glucose (UA) Negative (NEGATIVE) mg/dL Urine Ketones 40 H (NEGATIVE) mg/dL Urine Occult Blood Negative (NEGATIVE) Urine Nitrite Negative (NEGATIVE) Urine Bilirubin Moderate H (NEGATIVE) Urine Urobilinogen 0.2 (0.2-1.0) E.U./dL Ur Leukocyte Esterase Negative (NEGATIVE) Urine RBC 0-5 /HPF Urine WBC 0-5 /HPF Ur Epithelial Cells Many H /LPF Other Crystals Many /HPF Urine Bacteria Moderate H (NONE TO FEW) /HPF Urinalysis Comment Meds: Medications Discontinued Medications Generic Name Dose Route Start Last Admin Trade Name Freq PRN Reason Stop Dose Admin Hydromorphone HCl 1 mg 10/19/21 14:01 10/19/21 14:15 Hydromorphone 1 Mg/Ml Syringe IVPUSH 10/19/21 14:02 1 mg ONETIME ONE Administration Ketorolac Tromethamine 30 mg 10/19/21 13:59 10/19/21 14:14 Ketorolac 30 Mg/Ml Sdv IVPUSH 10/19/21 14:00 30 mg ONETIME ONE Administration Methylprednisolone Sodium Succinate 40 mg 10/19/21 14:02 10/19/21 14:15 Methylprednisolone Sodium Succinate 40 Mg/1 Ml Sdv IVPUSH 10/19/21 14:03 40 mg ONETIME ONE Administration Ondansetron HCl 4 mg 10/19/21 13:59 10/19/21 14:15 Ondansetron 4 Mg/2 Ml Sdv IVPUSH 10/19/21 14:00 4 mg ONETIME ONE Administration Sodium Chloride 10 ml 10/19/21 14:30 10/19/21 14:20 Sodium Chloride 0.9% 10 Ml Syringe FLUSH 10 ml ASDIRECTED [facility] Administration - Re-Assessments/Exams Free Text/Narrative Re-Assessment/Exam: 10/19/21 14:14 Exam limited by patient's pain complaint. Unable to perform straight leg raises. Will give Toradol/Zofran/Dilaudid/SoluMedrol. UA/CBC/Chem/Mg ordered. 10/19/21 17:29 Patient monitored for several hours. Observed to be able to safely get out of ED bed and to/from bathroom on own. Appeared more comfortable. Labs overall unremarkable. She was discharged home once it was felt that she was comfortable enough to care for herself at home. Son able to pick her up and give ride home. Plan is to have her continue Toradol/Tramadol/Valium PRN over next 3-4 days. To follow up with PCP for any additional medications if needed and referral to specialty care if needed. May need updated MRI. To return to ER if she has sudden worsening problems. Departure - Departure Time of Disposition: 16:07 Disposition: Home, Self-Care 01 Condition: Good Clinical Impression: Acute low back pain with bilateral sciatica Qualifiers: Back pain laterality: bilateral Qualified Code(s): M54.42 - Lumbago with sciatica, left side - Discharge Information *PRESCRIPTION DRUG MONITORING PROGRAM REVIEWED*: No *COPY OF PRESCRIPTION DRUG MONITORING REPORT IN PATIENT CHARLES: No Prescriptions: Ketorolac [Toradol] 10 mg PO Q6H PRN #15 tab PRN Reason: Pain traMADol [Ultram] 50 mg PO Q4H PRN #15 tab PRN Reason: Pain diazePAM [Valium] 2 mg PO TID PRN #9 tab PRN Reason: Spasms Instructions: Chronic Back Pain Referrals: Tonja Gibson PA-C [Primary Care Provider] - Forms: ED Department Discharge, ED Return to Work/School Form Additional Instructions: Ice sore areas frequently. Make a follow up appointment with your provider for tomorrow or Saturday. Additional pain medications should come from your own provider. Gentle activity/gentle stretching over weekend. Follow up otherwise as needed for acute problems/concerns. Sepsis Event Note (ED) - Focused Exam Vital Signs: Vital Signs Temp Pulse Resp BP Pulse Ox 10/19/21 16:15 68 144/94 H 100 10/19/21 16:00 80 20 94 L 10/19/21 15:30 77 20 91 L 10/19/21 15:00 68 20 127/90 97 10/19/21 14:45 75 20 145/97 H 100 10/19/21 14:30 79 100 10/19/21 14:15 83 20 143/96 H 98 10/19/21 14:00 88 20 143/106 H 99 10/19/21 13:45 90 22 H 135/95 H 99 10/19/21 13:31 37.1 C 95 22 H 134/106 H 97
[2021-10-19] MEDS ORDERED: Sodium Chloride 0.9% 10 ML Syringe FLUSH SCH (14:30)
[2021-10-19 14:37] LABS: ANION GAP 10.7 meq/L (7-15); CHLORIDE,CL 107 mmol/L (98-107); SODIUM,NA 142 mmol/L (136-145)
== END 2021-10-19 16:40 | disposition home or self-care (01) ==
LOC: LL.ED 13:31
DX: M54.42 Lumbago with sciatica, left side (principal); M54.41 Lumbago with sciatica, right side; I10 Essential (primary) hypertension; E66.9 Obesity, unspecified; Z68.30 Body mass index [BMI] 30.0-30.9, adult; Z88.1 Allergy status to other antibiotic agents; Z79.899 Other long term (current) drug therapy
CPT/HCPCS: 36415; 80053; 81001; 83735; 85025; 96374; 96375; 99283; 99284-25; J1170; J1885; J2405; J2920

== ENCOUNTER 2023-08-19 21:01 | Emergency (ER) | payer BC ==
[2023-08-19] MEDS: Bacitracin Oint 1 GM U/D Packet TOP ONE (21:53)
[2023-08-19] MEDS: Take Home: traMADol 50 MG, 4 Tab Pack PO ONE (21:53)
== END 2023-08-19 22:00 | disposition home or self-care (01) ==
LOC: LL.ED 21:01
DX: T23.052A Burn of unspecified degree of left palm, initial encounter (principal); F17.210 Nicotine dependence, cigarettes, uncomplicated; E66.9 Obesity, unspecified; I10 Essential (primary) hypertension; Z79.899 Other long term (current) drug therapy; Z88.8 Allergy status to other drugs, medicaments and biological substances; Z88.2 Allergy status to sulfonamides; Z91.018 Allergy to other foods; X58.XXXA Exposure to other specified factors, initial encounter
CPT/HCPCS: 99283; A9270